=== PATIENT | female | born 1955 | race Caucasian/White ===

== ENCOUNTER 2020-12-13 16:36 | Emergency (ER) | payer MEDICARE, MEDICAID, SELFPAY ==
--- NOTE | ~2020-12-13 | CT_ITS ---
EXAMINATION: CT HEAD WITHOUT CONTRAST CT CERVICAL SPINE WITHOUT CONTRAST CLINICAL INFORMATION: Fall. Hit head. COMPARISON: 02/21/2020 CT head TECHNIQUE: A noncontrast CT of the head and a noncontrast CT of the cervical spine with sagittal and coronal reformats. This CT examination was performed using dose optimization techniques as appropriate, variously including the following: *Automated exposure control *Adjustment of mA and/or kV according to patient size (this includes techniques or standardized protocols for targeted exams where dose is matched to indication/reason for exam; i.e. extremities or head) *Use of iterative reconstruction technique DLP: 887 FINDINGS: No intra-axial or extra-axial hemorrhage. No acute territorial infarct. Chronic small vessel ischemic disease and generalized atrophy, similar to previous. Preservation of alvarez-white matter differentiation. No mass, mass effect, or midline shift. No fracture. The mastoid air cells and visualized paranasal sinuses are clear. Normal alignment of the cervical spine. No fracture. No prevertebral soft tissue swelling. C5-C6 and C6-C7 degenerative disc disease. Prominent degenerative changes at the anterior atlantoaxial junction. CT/CT head/brain wo con IMPRESSION: No acute intracranial abnormality. No cervical spine fracture or traumatic subluxation.
--- NOTE | ~2020-12-13 | CT_ITS ---
EXAMINATION: CT HEAD WITHOUT CONTRAST CT CERVICAL SPINE WITHOUT CONTRAST CLINICAL INFORMATION: Fall. Hit head. COMPARISON: 02/21/2020 CT head TECHNIQUE: A noncontrast CT of the head and a noncontrast CT of the cervical spine with sagittal and coronal reformats. This CT examination was performed using dose optimization techniques as appropriate, variously including the following: *Automated exposure control *Adjustment of mA and/or kV according to patient size (this includes techniques or standardized protocols for targeted exams where dose is matched to indication/reason for exam; i.e. extremities or head) *Use of iterative reconstruction technique DLP: 887 FINDINGS: No intra-axial or extra-axial hemorrhage. No acute territorial infarct. Chronic small vessel ischemic disease and generalized atrophy, similar to previous. Preservation of alvarez-white matter differentiation. No mass, mass effect, or midline shift. No fracture. The mastoid air cells and visualized paranasal sinuses are clear. Normal alignment of the cervical spine. No fracture. No prevertebral soft tissue swelling. C5-C6 and C6-C7 degenerative disc disease. Prominent degenerative changes at the anterior atlantoaxial junction. CT/CT cervical spine wo con IMPRESSION: No acute intracranial abnormality. No cervical spine fracture or traumatic subluxation.
[2020-12-13 16:40] VITALS: BP 156/81; PULSE 69; RESP 16; TEMP 35.9; O2SAT 100; BMI 22.3
[2020-12-13 17:41] VITALS: BP 136/89; PULSE 91; RESP 16; O2SAT 98
[2020-12-13 18:04] VITALS: BP 157/74; PULSE 66; RESP 18; TEMP 35.8; O2SAT 98
--- NOTE | 2020-12-13 18:16 | ED.FALL ---
HPI - Fall General Chief Complaint: Fall Stated Complaint: fall head inj Time Seen by Provider: 12/13/20 17:48 Source: patient and other ( jail staff) Mode of arrival: ambulatory Limitations: no limitations History of Present Illness HPI Narrative: 65-year-old female with a past medical history of bipolar, mood disorder, depression, anxiety, OCD, GERD, hypothyroidism, osteopenia, insomnia, breast cancer with left mastectomy, obesity here with complaints of fall. Per staff the patient was noted to have bleeding to the left side of her face with a laceration. The patient is nonverbal at baseline but does use some sign language. She was able to communicate to them that she fell. This was unwitnessed by staff. Staff does tell me that the sites of his bleeding had a previous laceration and they are unsure if she actually fell or if she reopened the laceration. She is at her mental status baseline. her tetanus is up-to-date. she is not on anticoagulation Related Data Allergies Allergy/AdvReac Type Severity Reaction Status Date / Time tamoxifen [TAMOXIFEN] Allergy Unknown OUT OF Unverified 02/29/20 16:45 SORTS Review of Systems Review of Systems: Yes Unobtainable due to mental status PMFSH Past Medical History Attestation statement: The following information was validated with the patient. Source: old records reviewed and nursing notes reviewed Medical History Anxiety Breast cancer Loose stools Mood disorder Social History Social History Advance Directives: Yes Advance Directives Information Provided: No Advance Directives on File: No Patient : No Physical Exam Vital Signs: Vital Signs: Last Vital Signs Temp 96.4 F L 12/13/20 18:04 Pulse 64 12/13/20 19:23 Resp 16 12/13/20 19:23 BP 150/63 H 12/13/20 19:23 Pulse Ox 98 12/13/20 19:23 Body Mass Index 22.3 Const: Other: nonverbal baseline General: no acute distress Nutritional Appearance: well nourished HENMT: Head: Yes normal to inspection Head images: 1. laceration Ears: hearing grossly normal bilaterally General nose exam: Normal external nose present Face and sinus: Yes normal facial exam Mouth: Normal oral and palatal mucosa present Throat: Yes posterior oropharynx normal Eyes: General: appearance normal, both eyes and all related structures Pupils: Equal, round and reactive pupils present Neck: Other: no midline tenderness, step-offs or deformities Neck: Yes normal visual inspection, Yes full ROM and Yes no lymphadenopathy Chest: Chest palpation & inspection: normal inspection of the chest Resp: Effort & Inspection: normal respiratory effort Auscultation: clear to auscultation bilaterally Cardio: Rate: regular rate Rhythm: regular rhythm Peripheral pulses: Peripheral pulses 2+ throughout GI: Inspection: Yes normal to inspection Palpation (GI): Soft to palpation and nontender Auscultation: normal bowel sounds Back/Spine/Pelvis: Thoracic/Lumbar Spine: thoracic and lumbar spine normal to inspection Skin: General skin exam: no rashes or lesions noted Neuro: Other: does not follow commands at baseline General: moves all extremities and normal sensation to monofilament Cranial nerves: Yes Equal, round and reactive pupils present Extrem: General: Yes normal to inspection Course Course Course Narrative: 65-year-old female here with complaints of fall with laceration to the left eyebrow. Staff is unsure if the patient actually fell as she had a previous wound at the same site and they believe she may have opened it herself. She is at her mental status baseline. No change per staff who is at the bedside. Hemodynamically stable. Will check CT head and neck as patient is unable to provide a history of present illness.. Will then need wound repair . 2015- CT negative. See wound repair note. Repeat neurological exam unchanged. At baseline. Discharge home with staff. Reviewed worrisome signs and symptoms with staff and when to return to the emergency department. Comfortable discharge home. Procedures Laceration Laceration 1: Site: other ( Eyebrow) Side (If applicable): left Size (cm): 2 Description: linear Depth: simple, single layer Local Anesthetic: lidocaine 2% Amount of anesthesia used (mL): 1 Pre-repair: wound explored Skin layer closed with: vicryl Size (cm): 6-0 Number of sutures: 3 Technique: simple, interrupted MDM - Fall Medical Records Attestation: I reviewed the patient's medical records. Lab Data Attestation: I reviewed the patient's lab results. Discharge Plan Discharge Clinical Impression: Laceration of face Patient Disposition: Home, Self-Care Instructions: Head Laceration (ED) Additional Instructions: sutures out in 5-7 days water may run over the sutures but no scrubbing at the site Tylenol for pain as needed Referrals: Gina Kumar MD [Primary Care Provider] - 2 days Interventions: ED Discharge Assessment Last Done: 12/13/20 20:06 Discharge Date/Time: 12/13/20 19:30
--- NOTE | 2020-12-13 18:38 | PC.NURSE ---
Pt is resting quietly in bed with brand representative from senior care at bedside.
--- NOTE | 2020-12-13 19:22 | PC.NURSE ---
Pt lidocaine pulled from pyxis by previous RN Vickie Bass, given to provider for bedside use. This RN unable to documented medication. Pt sutured without incidence by provider.
[2020-12-13 19:23] VITALS: BP 150/63; PULSE 64; RESP 16; O2SAT 98
== END 2020-12-13 19:30 | disposition home or self-care (01) ==
PROVIDERS: Emergency Provider Emergency Medicine Emergency Medical Services; PCP Family Medicine
DX: S01.112A Laceration without foreign body of left eyelid and periocular area, initial encounter (principal); W19.XXXA Unspecified fall, initial encounter; Y93.9 Activity, unspecified; Y92.9 Unspecified place or not applicable; Y99.9 Unspecified external cause status
CPT/HCPCS: 12011; 70450; 72125; 99284

== ENCOUNTER 2023-02-17 07:55 | Emergency (ER) | payer MEDICARE, MEDICAID, SELFPAY ==
--- NOTE | ~2023-02-17 | CT_ITS ---
EXAMINATION: CT HEAD WITHOUT CONTRAST CLINICAL INFORMATION: Weakness COMPARISON: 12/13/2020 TECHNIQUE: Contiguous axial imaging was performed from the skull base to vertex without intravenous administration of contrast. This CT examination was performed using dose optimization techniques as appropriate, variously including the following: *Automated exposure control *Adjustment of mA and/or kV according to patient size (this includes techniques or standardized protocols for targeted exams where dose is matched to indication/reason for exam; i.e. extremities or head) *Use of iterative reconstruction technique DLP: 644 mGy-cm FINDINGS: Unchanged volume loss. No evolving infarct, mass lesion, mass effect, midline shift, hemorrhage or extra-axial fluid collections. Lens extractions have been performed. Sinuses and mastoids are free of disease. Bony structures are intact. Unremarkable soft tissues. CT/CT head/brain wo IV con IMPRESSION: No acute intracranial pathology. Atrophy.
--- NOTE | ~2023-02-17 | XR_ITS ---
EXAMINATION: XR CHEST XR KUB CLINICAL INFORMATION: Cough. Constipation. COMPARISON: None TECHNIQUE: Chest, AP view. Abdomen, AP view, patient supine position. FINDINGS: CHEST: The patient is slightly rotated into a left anterior oblique position. Lungs are hypoinflated and clear. No pleural effusion. Cardiac silhouette is normal in size. Pulmonary vascular pattern is normal. 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 ABDOMEN: There is gaseous distention of bowel. Moderate to large amount fecal material is present within the colon. No fecal impaction within the rectum. Findings could be a manifestation of constipation. No pneumoperitoneum is seen on these radiographs obtained with the patient in supine position. No overt renal stones, although detection of small stones would be difficult due to overlying bowel gas and fecal material. The visualized bones are intact. Osteoarthritis of the hips appears to be mild on the right and moderate on the left. XR/XR KUB IMPRESSION: * No acute pulmonary abnormality. No evidence of pneumonia. * Moderate to large amount fecal material is present in the colon which is distended with gas. This could represent constipation. No evidence of bowel obstruction.
--- NOTE | ~2023-02-17 | XR_ITS ---
EXAMINATION: XR CHEST XR KUB CLINICAL INFORMATION: Cough. Constipation. COMPARISON: None TECHNIQUE: Chest, AP view. Abdomen, AP view, patient supine position. FINDINGS: CHEST: The patient is slightly rotated into a left anterior oblique position. Lungs are hypoinflated and clear. No pleural effusion. Cardiac silhouette is normal in size. Pulmonary vascular pattern is normal. 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 ABDOMEN: There is gaseous distention of bowel. Moderate to large amount fecal material is present within the colon. No fecal impaction within the rectum. Findings could be a manifestation of constipation. No pneumoperitoneum is seen on these radiographs obtained with the patient in supine position. No overt renal stones, although detection of small stones would be difficult due to overlying bowel gas and fecal material. The visualized bones are intact. Osteoarthritis of the hips appears to be mild on the right and moderate on the left. XR/XR chest 1V IMPRESSION: * No acute pulmonary abnormality. No evidence of pneumonia. * Moderate to large amount fecal material is present in the colon which is distended with gas. This could represent constipation. No evidence of bowel obstruction.
[2023-02-17 07:57] VITALS: BP 168/70; PULSE 72; RESP 18; O2SAT 97
[2023-02-17 08:01] VITALS: BP 155/73; BP 168/70; PULSE 68; PULSE 72; RESP 18; TEMP 36.6; O2SAT 97; BMI 23.3
--- NOTE | 2023-02-17 08:16 | ECG_ITS ---
Test Reason : WEAKNESS Blood Pressure : / mmHG Vent. Rate : 069 BPM Atrial Rate : 069 BPM P-R Int : 130 ms QRS Dur : 086 ms QT Int : 396 ms P-R-T Axes : 000 046 050 degrees QTc Int : 424 ms Normal sinus rhythm Normal ECG No previous ECGs available Referred By: Avani Lu Electronically Signed By:LEESA ABREU
--- OUTSIDE RECORDS SUMMARY | 2023-02-17 08:35 | XMS_ITS | Patient Health Record ---
Author Name Unknown Organization [facility] Address [address] [place] [address] Care Team Providers Care Hydrator Operator Name Role Phone Gina Kumar MD Primary Care Provider Unavailab Ajay Feliciano Jr Unavailable [phone] Pro Warren Unavailable [phone] ALLERGIES Allergen (clinical drug ingredient) Drug/Non Drug Allergy documented on EMR Reaction Allergy Type Onset Date Status tamoxifen Tamoxifen Unknown Drug Allergy Active REASON FOR REFERRAL No Information MEDICATIONS Medication SIG (Take, Route, Frequency, Duration) Notes Start Date End Date Status Thera - Oral for 30 Active Dulcolax (colon prep) 5 MG take at 3:00 p.m and 7:00p.m. Orally two tablets twice a day for one day for 1 day 01/26/2023 Active Loperamide HCl 2 MG Oral for 30 Active MiraLax (colon prep) 8.3 ounce ((238) grams mixed with Gatorade or Crystal Light orally begin at 5:00 p.m. the day before the procedure for 1 day 01/26/2023 Active Acetaminophen 325 MG Oral for 30 Active Omeprazole 20 MG Oral for 30 A ctive Sertraline HCl 100 MG Oral for 30 Active Loratadine 10 MG Oral for 30 A ctive Fluticasone Propionate 50 MCG/ACT Nasal for 30 Active Bacitracin 500 UNIT/GM External for 7 Active Nystatin 598542 UNIT/GM External for 14 Active clonazePAM 1 MG Oral for 30 Ac tive Preparation H Hydrocortisone Active GNP Milk of Magnesia 1200 MG/15ML Oral for 24 Active guaiFENesin 100 MG/5ML 10 mL as needed O rally every 4 hrs for cough Active Divalproex Sodium 125 MG Oral for 30 Active traZODone HCl 150 MG Oral for 30 Active SOCIAL HISTORY Tobacco Use: Social History Observation Description Date Details (start date - stop date) Never Smoker NA - NA Sex Assigned At : Social History Observation Description Sex Assigned At Unknown Tobacco Use/Smoking Question Answer Notes Patient is a nonsmoker Alcohol Screen Question Answer Notes Did you have a drink containing alcohol in the p ast year? No Points 0 Interpretation Negative PROBLEMS Problem Type ICD Code Onset Dates Problem Status W/U Status Risk SNOMED Code Notes Problem Lymphocytic colitis (K52.832) Active confirmed 9626269101 Problem Colon cancer screening (Z12.11) Active confirmed [id number] Encounters Encounter Location Date Provider Diagnosis [facility] [address] [place] [phone] 01/21/2023 Ajay Guaman Jr [facility] [address] [place] [phone] 01/28/2023 Pro Warren [facility] [address] [place] [phone] 01/26/2023 Ajay Guaman Jr Lymphocytic colitis K52.832 and Colon cancer screening Z12.11 ASSESSMENTS Encounter Date Diagnosis Assessment Notes Treatment Notes Treatment Clinical Notes 01/26/2023 Colon cancer screening (ICD-10 - Z12.11) Colonoscopy material was printed 01/26/2023 Lymphocytic colitis (ICD-10 - K52.832) PLAN OF TREATMENT Future Test Test Name Order Date COLONOSCOPY 01/26/2023 Next Appt Details Provider Name:Ajay munguia , 03/10/2023 10:10:00 AM, [address] [place] [address] , [place], [place], [id number], Insurance Providers Payer Name Payer Address Payer Phone Subscriber Number Group Number Insured Name Patient Relationship to Insured Coverage Start Date Coverage End Date [place] [address] [place] [phone] [id number] SIMONE ESTRELLITA Self - patient is the insured MEDICAID OF [facility] [address] [place] [phone] [id number] ESTRELLITA NICHOLS Self - patient is the insured MEDICAL (GENERAL) HISTORY Medical History History ICD Code Colonoscopy 02/25, sessile se rrated polyp, biopsies showing increased intraepithelial and lamina propria lymphocytes,? Lymphocytic colitis breast cancer arthritis gerd hemorrhoids hypothyroidism bipolar disorder Surgical History Surgery Date(Month/Year) cateract surgery left mastectomy partial hysterectomy
--- NOTE | 2023-02-17 08:45 | ED.GENADULT ---
HPI - General Adult General Chief complaint: Altered Mental Status Stated complaint: [facility] ST[facility] NOT ACTING @BASELINE,?'STROKE Time Seen by Provider: 02/17/23 07:59 Source: EMS and old records reviewed Mode of arrival: EMS Limitations: altered mental status History of Present Illness HPI narrative: 67 yo female with PMH of breast cancer, mood disorder, nonverbal from [facility] she reportedlly was less responsive this AM and staff thought possible facial droop though EMS notes no droop and no deficits on EMS arrival. No other hx reported. Patient now appears at baseline. Patient dx with COVID last Thursday did take paxlovid. Patient follows commands, tracks with eyes. complaint: decreased responsiveness Onset (ago): hour(s) (staff noted this AM) Severity: mild Relieving factors: rest Exacerbating factors: none Associated symptoms: denies other symptoms Treatments prior to arrival: other (has been on paxlovid) Related Data Previous Rx's Medication Instructions Recorded docusate sodium 100 mg capsule 100 mg PO BID #60 caps 02/17/23 (Colace) lactulose 20 gram/30 mL oral 20 g (30 mL) PO DAILY #1,200 mL 02/17/23 solution sennosides 8.6 mg tablet (senna) 8.6 mg PO BEDTIME #30 tabs 02/17/23 Allergies Allergy/AdvReac Type Severity Reaction Status Date / Time tamoxifen [TAMOXIFEN] Allergy Unknown OUT OF Unverified 02/29/20 16:45 SORTS Review of Systems Review of Systems: ROS unable to be obtained due to altered mental status PMFSH Past Medical History Attestation statement: The following information was validated with the patient. Medical History Loose stools Mood disorder Anxiety Breast cancer Social History Social History Alcohol intake: never Smoked in Last 30 Days: No Use of substances other than those prescribed or required for medical reasons: No Advance Directives: No Physical Exam ED Vital Signs: Vital Signs - 24 hr 02/17/23 07:57 02/17/23 08:01 Temperature 97.8 F Pulse Rate 72 68 Respiratory Rate 18 18 Blood Pressure 168/70 H 155/73 H Pulse Oximetry 97 97 Oxygen Delivery Method Room Air Room Air BMI result Body Mass Index 23.3 Appearance: Alert. follows commands, nonverbal No acute distress. Eyes: Pupils equal, round and reactive to light. ENT: Pharynx normal. Neck: Normal inspection. Neck supple. CVS: Normal heart rate and rhythm. Pulses normal. Respiratory: No respiratory distress. Breath sounds at bases diminished does have coarse cough Abdomen: Soft and nontender. Skin: Skin warm and dry. Normal skin color. Normal skin turgor. Extremities: No lower extremity edema. Neuro: tracks with eyes and follows commands, moving all extremities. No motor deficit. No sensory deficit. Course Course Course Narrative: patient at baseline per family Medical Decision Making Medical Decision Making [facility] Narrative: 67 yo female with mood disorder, nonverbal, dx with COVID 2 days ago here with c/o being less responsive upon waking she has no focal deficits does have a productive cough but not hypoxic. she is already on paxlovid. at this time will need basic labs, CXR, CT head for ICH. She appears at baseline. Possible COVID pneumonia, dehydration, encephalopathy Differential Diagnosis Differential Diagnoses: The differential diagnosis associated with the presentation includes COVID pneumonia, ICH, encephalopathy, dehydration, Admission/Observation Consideration of admission/observation: Escalation of care including admission/observation considered at baseline can be DC home with bowel regimen Lab Data [facility] Lab Attestation statement: I reviewed the patient's lab results. 02/17/23 08:56 02/17/23 08:55 Labs: Lab Results 02/17/23 02/17/23 02/17/23 Range/Units 08:55 08:56 10:19 WBC 5.2 (4.8-10.8) X10*3/uL RBC 4.07 L (4.20-5.50) X10*6/uL Hgb 12.8 (12.0-16.0) g/dl Hct 38.3 (37.0-47.0) % MCV 94.1 (80.0-98.0) fL MCH 31.4 (27.0-33.0) pg MCHC 33.4 (31.0-35.0) g/dl RDW 11.9 (11.0-16.0) % Plt Count 203 (160-400) X10*3/uL MPV 11.6 (9.4-12.3) fL Immature Gran % (Auto) 0.4 (0.0-0.4) % Neut % (Auto) 49.6 (45-73) % Lymph % (Auto) 38.8 (20-40) % [place] % (Auto) 8.3 (2-11) % Eos % (Auto) 2.3 (0-4) % Baso % (Auto) 0.6 (0-2) % Lymph # (Auto) 2.0 (1.2-4.9) X10*3/uL [place] # (Auto) 0.4 (0.1-1.2) X10*3/uL Eos # (Auto) 0.1 (0.0-0.4) X10*3/uL Baso # (Auto) 0.0 (0.0-0.2) X10*3/uL Abs Immat Gran (auto) 0.02 (0.00-0.03) X10*3/uL Absolute Neuts (auto) 2.6 (2.0-8.3) x10*3/uL Absolute Nucleated RBC 0.000 (0.0-0.012) X10*3/uL Nucleated RBC % (auto) 0.0 (0.0-0.2) /100WBC Sodium 140 (135-145) mmol/L Potassium 3.7 (3.3-5.1) mmol/L Chloride 101 (96-108) mmol/L Carbon Dioxide 31 H (22-29) mmol/L Anion Gap 12 (12-20) BUN 10 (9-16) mg/dL Creatinine 0.69 (0.5-1.4) mg/dL Estim Creat Clear Calc 72.2 Estimated GFR > 60 Random Glucose 99 (60-115) mg/dL Calcium 10.1 (8.4-10.2) mg/dL Magnesium 2.4 (1.6-2.6) mg/dL Total Bilirubin 0.4 (0.0-1.0) mg/dL Direct Bilirubin 0.2 (0.0-0.5) mg/dL AST 21 (5-31) U/L ALT 11 (0-31) U/L Alkaline Phosphatase 72 (39-117) U/L Troponin I High Sens < 2.7 (<3.5-17.0) ng/L Total Protein 8.5 H (6.5-8.0) g/dL Albumin 4.5 (3.5-5.0) g/dL Urine Color Yellow Urine Appearance Clear Urine pH 8.0 (5.0-9.0) Ur Specific [place] 1.010 (1.005-1.025) Urine Protein Negative (Neg-Trace) mg/dL Urine Glucose (UA) Negative (Negative) mg/dL Urine Ketones Negative (Negative) mg/dL Urine Blood Negative (Negative) Urine Nitrite Negative (Negative) Ur Leukocyte Esterase Negative (Negative) Valproic Acid (50.0-100.0) mcg/mL 02/17/23 Range/Units 10:45 WBC (4.8-10.8) X10*3/uL RBC (4.20-5.50) X10*6/uL Hgb (12.0-16.0) g/dl Hct (37.0-47.0) % MCV (80.0-98.0) fL MCH (27.0-33.0) pg MCHC (31.0-35.0) g/dl RDW (11.0-16.0) % Plt Count (160-400) X10*3/uL MPV (9.4-12.3) fL Immature Gran % (Auto) (0.0-0.4) % Neut % (Auto) (45-73) % Lymph % (Auto) (20-40) % [place] % (Auto) (2-11) % Eos % (Auto) (0-4) % Baso % (Auto) (0-2) % Lymph # (Auto) (1.2-4.9) X10*3/uL [place] # (Auto) (0.1-1.2) X10*3/uL Eos # (Auto) (0.0-0.4) X10*3/uL Baso # (Auto) (0.0-0.2) X10*3/uL Abs Immat Gran (auto) (0.00-0.03) X10*3/uL Absolute Neuts (auto) (2.0-8.3) x10*3/uL Absolute Nucleated RBC (0.0-0.012) X10*3/uL Nucleated RBC % (auto) (0.0-0.2) /100WBC Sodium (135-145) mmol/L Potassium (3.3-5.1) mmol/L Chloride (96-108) mmol/L Carbon Dioxide (22-29) mmol/L Anion Gap (12-20) BUN (9-16) mg/dL Creatinine (0.5-1.4) mg/dL Estim Creat Clear Calc Estimated GFR Random Glucose (60-115) mg/dL Calcium (8.4-10.2) mg/dL Magnesium (1.6-2.6) mg/dL Total Bilirubin (0.0-1.0) mg/dL Direct Bilirubin (0.0-0.5) mg/dL AST (5-31) U/L ALT (0-31) U/L Alkaline Phosphatase (39-117) U/L Troponin I High Sens (<3.5-17.0) ng/L Total Protein (6.5-8.0) g/dL Albumin (3.5-5.0) g/dL Urine Color Urine Appearance Urine pH (5.0-9.0) Ur Specific [place] (1.005-1.025) Urine Protein (Neg-Trace) mg/dL Urine Glucose (UA) (Negative) mg/dL Urine Ketones (Negative) mg/dL Urine Blood (Negative) Urine Nitrite (Negative) Ur Leukocyte Esterase (Negative) Valproic Acid 37.0 L (50.0-100.0) mcg/mL Independent Interpretation I performed an independent interpretation of an: EKG and Plain X-Ray Interpretation: Rate: 69 Rhythm: NSR [place]: normal , LVH Normal P waves. Normal GIO. Normal QRS complex. ST T wave : normal no VERNON qTC: normal prior studies: no acute ischemia The study has been interpreted contemporaneously by me. . Radiology Impression Discussion of test interpretation with radiology: I have reviewed the radiologist's reading. Independent Historian Clinical information obtained from an independent historian. History obtained from or confirmed by: Other (son) External Record Review External record reviewed: Outpatient record Discharge Plan Discharge Clinical Impression: Weakness Constipation Qualifiers: Constipation type: unspecified constipation type Qualified Code(s): K59.00 - Constipation, unspecified Patient Disposition: Home, Self-Care Instructions: Constipation (ED), Weakness (ED) Additional Instructions: return for worsening symptoms, fevers, lethargy, inability to eat or drink no covid pneumonia, no UTI, labs stable, CT head normal constipation noted on xray start on bowel regimen of docusate, senna and lactulose Prescriptions: New sennosides [senna] 8.6 mg tablet 8.6 mg PO BEDTIME Qty: 30 0RF docusate sodium [Colace] 100 mg capsule 100 mg PO BID Qty: 60 0RF lactulose 20 gram/30 mL solution 20 g PO DAILY Qty: 1200 0RF
[2023-02-17 09:00] LABS: MANUAL DIFF FLAG NO
[2023-02-17 09:02] LABS: Basophils Percent Auto 0.6 % (0-2); Eosinophils Absolute Auto 0.1 X10*3/uL (0.0-0.4); Eosinophils Percent Auto 2.3 % (0-4); Hematocrit 38.3 % (37.0-47.0); Hemoglobin 12.8 g/dl (12.0-16.0); Imm Gran Abs Auto 0.02 X10*3/uL (0.00-0.03); Imm Gran Pct Auto 0.4 % (0.0-0.4); Lymphocytes Percent Auto 38.8 % (20-40); Mean Corpuscular HGB Conc 33.4 g/dl (31.0-35.0); Mean Corpuscular Hemoglobin 31.4 pg (27.0-33.0); Mean Corpuscular Volume 94.1 fL (80.0-98.0); Mean Platelet Volume 11.6 fL (9.4-12.3); Monocytes Absolute Auto 0.4 X10*3/uL (0.1-1.2); Monocytes Percent Auto 8.3 % (2-11); Neutrophils Absolute Auto 2.6 x10*3/uL (2.0-8.3); Neutrophils Percent Auto 49.6 % (45-73); Platelet Count 203 X10*3/uL (160-400); Red Blood Count 4.07 X10*6/uL (4.20-5.50); Red Cell Distribution Width 11.9 % (11.0-16.0); White Blood Count 5.2 X10*3/uL (4.8-10.8)
[2023-02-17 09:15] LABS: Alanine Aminotransferase 11 U/L (0-31); Albumin Level 4.5 g/dL (3.5-5.0); Alkaline Phosphatase 72 U/L (39-117); Anion Gap 12 (12-20); Aspartate Amino Transferase 21 U/L (5-31); Bilirubin Direct 0.2 mg/dL (0.0-0.5); Bilirubin Total 0.4 mg/dL (0.0-1.0); Blood Urea Nitrogen 10 mg/dL (9-16); Calcium 10.1 mg/dL (8.4-10.2); Carbon Dioxide 31 mmol/L (22-29); Chloride 101 mmol/L (96-108); Creatinine Clr Calc Pharmacy 72.2; Estimated Glomerular Filt Rate > 60; Glucose Random 99 mg/dL (60-115); Magnesium 2.4 mg/dL (1.6-2.6); Potassium 3.7 mmol/L (3.3-5.1); Sodium 140 mmol/L (135-145); Total Protein 8.5 g/dL (6.5-8.0)
[2023-02-17 09:23] LABS: Troponin-I High Sensitivity < 2.7 ng/L (<3.5-17.0)
[2023-02-17 10:27] LABS: Appearance Urine Clear; Color Urine Yellow; Glucose Urine UA Negative (Negative); Leukocyte Esterase Urine Negative (Negative); Nitrite Urine Negative (Negative); Urine Blood Negative (Negative); Urine Ketones Negative (Negative); Urine Protein Negative (Neg-Trace)
[2023-02-17 11:16] VITALS: BP 163/58; PULSE 70; RESP 18; O2SAT 97
== END 2023-02-17 12:22 | disposition home or self-care (01) ==
PROVIDERS: Emergency Provider Emergency Medicine; PCP Family Medicine
DX: R53.1 Weakness (principal); K59.00 Constipation, unspecified; Z86.16 Personal history of COVID-19
CPT/HCPCS: 36415; 70450; 71045; 74018; 80048; 80076; 80164; 81003; 83735; 84484; 85025; 93005; 99284

== ENCOUNTER 2023-02-18 10:53 | Emergency (ER) | payer MEDICARE, MEDICAID, SELFPAY ==
--- NOTE | 2023-02-18 | ECG_ITS ---
Test Reason : NEURO SYMPTOMS Blood Pressure : / mmHG Vent. Rate : 081 BPM Atrial Rate : 086 BPM P-R Int : 000 ms QRS Dur : 082 ms QT Int : 370 ms P-R-T Axes : 000 049 042 degrees QTc Int : 429 ms Normal sinus rhythm with short MD Otherwise normal ECG When compared with ECG of 17-FEB-2023 08:38, No significant change was found Referred By: Generic ED Physician Electronically Signed By:LEESA ABREU
--- NOTE | ~2023-02-18 | CT_ITS ---
EXAMINATION: CT HEAD WITHOUT CONTRAST CLINICAL INFORMATION: Right facial droop. Rule out bleed or stroke. COMPARISON: Previous head CT scans, most recent from yesterday TECHNIQUE: Contiguous axial imaging was performed from the skull base to vertex without intravenous administration of contrast. This CT examination was performed using dose optimization techniques as appropriate, variously including the following: *Automated exposure control *Adjustment of mA and/or kV according to patient size (this includes techniques or standardized protocols for targeted exams where dose is matched to indication/reason for exam; i.e. extremities or head) *Use of iterative reconstruction technique DLP: 701 mGy-cm FINDINGS: There is no evidence of an extra-axial collection. There is no evidence of intra or extra-axial hemorrhage. The ventricles and extra-axial CSF spaces are prominent suggestive of generalized atrophy. Taylor-white matter differentiation is normal. No mass, mass effect or infarct is seen. No skull fracture. Visualized paranasal sinuses, mastoid air cells and middle ears are clear. CT/CT head/brain wo IV con IMPRESSION: No acute intracranial findings. No change from yesterday's exam.
[2023-02-18 11:02] VITALS: BP 162/63; BP 168/92; PULSE 83; PULSE 84; RESP 12; TEMP 36.4; O2SAT 97; BMI 22.2
--- OUTSIDE RECORDS SUMMARY | 2023-02-18 11:24 | XMS_ITS | Patient Health Record ---
Author Name Unknown Organization [facility] Address [address] [place] [address] Care Team Providers Care Manager Sharepoint Name Role Phone Gina Kumar MD Primary Care Provider Unavailab Ajay Feliciano Jr Unavailable Pro Warren Unavailable [phone] ALLERGIES Allergen (clinical drug ingredient) Drug/Non Drug [...] 500 UNIT/GM External for 7 Active Nystatin 437362 UNIT/GM External for 14 Active clonazePAM 1 [...] Notes Problem Lymphocytic colitis (K52.832) Active confirmed 6703844555 Problem Colon cancer screening (Z12.11) Active confirmed [id number] Encounters Encounter Location Date Provider Diagnosis [facility] [address] [place] [phone] 01/21/[address] [facility] [address] [place] [phone] 01/28/[address] [facility] [address] [place] [phone] 01/26/2023 Ajay Guaman Jr Lymphocytic colitis K52.832 and Colon cancer screening Z12.11 [facility] [address] [place] [phone] 02/17/2023 Ajay Guaman Jr ASSESSMENTS Encounter Date Diagnosis Assessment Notes Treatment Notes Treatment Clinical Notes 01/26/2023 Colon cancer screening (ICD-10 - Z12.11) Colonoscopy material was printed 01/26/2023 Lymphocytic colitis (ICD-10 - K52.832) PLAN OF TREATMENT Future Test Test Name Order Date COLONOSCOPY 01/26/2023 Next Appt Details Provider Name:Ajay munguia Jr, 03/10/2023 10:10:00 AM, [address] [place] [address] , [place], [place], [phone], Insurance Providers Payer Name Payer Address Payer Phone Subscriber Number Group Number Insured Name Patient Relationship to Insured Coverage Start Date Coverage End Date MEDICARE OF [place] [address] [place] [phone] [id number] ESTRELLITA NICHOLS Self - patient is the insured MEDICAID OF [facility] [address] [place] [phone] [id number] ESTRELLITA NICHOLS Self - patient is the insured MEDICAL (GENERAL) HISTORY Medical History History ICD Code Colonoscopy 02/25, sessile se rrated polyp, biopsies showing increased intraepithelial and lamina propria lymphocytes,? Lymphocytic colitis breast cancer arthritis gerd hemorrhoids hypothyroidism bipolar disorder Surgical History Surgery Date(Month/Year) cateract surgery left mastectomy partial hysterectomy
[2023-02-18 11:49] LABS: Prothrombin Time 11.6 SEC (11.1-13.3)
[2023-02-18 11:53] LABS: COVID-19 Test Positive (Negative); IDNOW Serial# 08D9AD1C
[2023-02-18 11:57] LABS: Alanine Aminotransferase 12 U/L (0-31); Albumin Level 3.7 g/dL (3.5-5.0); Alkaline Phosphatase 58 U/L (39-117); Anion Gap 12 (12-20); Aspartate Amino Transferase 25 U/L (5-31); Bilirubin Total 0.3 mg/dL (0.0-1.0); Blood Urea Nitrogen 9 mg/dL (9-16); Calcium 9.5 mg/dL (8.4-10.2); Carbon Dioxide 27 mmol/L (22-29); Chloride 102 mmol/L (96-108); Estimated Glomerular Filt Rate > 60; Glucose Random 105 mg/dL (60-115); Sodium 137 mmol/L (135-145)
[2023-02-18 12:00] VITALS: BP 148/63; PULSE 83; RESP 16; O2SAT 96
--- NOTE | 2023-02-18 12:04 | PC.NURSE ---
evaluated by provider upon arrival. pt resting in room now with staff at bedside. ekg and lab work obtained. call lynne within reach.
[2023-02-18 12:05] LABS: Troponin-I High Sensitivity < 2.7 ng/L (<3.5-17.0)
[2023-02-18 12:23] LABS: Basophils Percent Auto 0.8 % (0-2); Eosinophils Absolute Auto 0.1 X10*3/uL (0.0-0.4); Eosinophils Percent Auto 1.9 % (0-4); Hemoglobin 10.4 g/dl (12.0-16.0); Imm Gran Abs Auto 0.02 X10*3/uL (0.00-0.03); Imm Gran Pct Auto 0.4 % (0.0-0.4); Lymphocytes Absolute Auto 1.7 X10*3/uL (1.2-4.9); Lymphocytes Percent Auto 32.8 % (20-40); Mean Corpuscular HGB Conc 33.5 g/dl (31.0-35.0); Mean Corpuscular Hemoglobin 32.4 pg (27.0-33.0); Mean Corpuscular Volume 96.6 fL (80.0-98.0); Mean Platelet Volume 11.8 fL (9.4-12.3); Monocytes Absolute Auto 0.7 X10*3/uL (0.1-1.2); Monocytes Percent Auto 12.6 % (2-11); Neutrophils Absolute Auto 2.7 x10*3/uL (2.0-8.3); Neutrophils Percent Auto 51.5 % (45-73); Platelet Count 196 X10*3/uL (160-400); Red Blood Count 3.21 X10*6/uL (4.20-5.50); Red Cell Distribution Width 11.9 % (11.0-16.0); White Blood Count 5.3 X10*3/uL (4.8-10.8)
[2023-02-18 12:25] LABS: MANUAL DIFF FLAG NO
[2023-02-18 14:42] VITALS: BP 153/73; PULSE 92; RESP 14; TEMP 36.8; O2SAT 97
--- NOTE | 2023-02-18 14:44 | PC.NURSE ---
neuros intact, pt at baseline per staff. resting quietly in room, no sign/symptoms of distress. vss, call lynne within reach.
--- NOTE | 2023-02-18 14:58 | PC.NURSE ---
[facility] [phone]
--- NOTE | 2023-02-18 15:00 | PC.NURSE ---
[facility] staff left for day, [facility] director Gisselle requesting pt have patient observer as she is a flight risk. patient observer at bedside.
--- NOTE | 2023-02-18 15:26 | ED.NEUROSD ---
HPI - Neuro Symptoms/Deficit General Chief Complaint: Neuro Symptoms/Deficit Stated Complaint: ?stroke, right sided facial droop Time Seen by Provider: 02/18/23 11:36 Source: EMS Mode of arrival: EMS Limitations: other ( patient is nonverbal.) History of Present Illness HPI Narrative: 67-year-old female who was sent to emergency department from her care facility for evaluation of facial droop and possible stroke. The patient is nonverbal in the information came from EMS. According to EMS the patient was noted to have a right-sided facial droop at 06:30 hours. This did not improve by 10:30 hours therefore they called an ambulance and had the patient brought to emergency department for evaluation. The patient was seen in the emergency department yesterday 02/17/2023 for a similar complaint. In reviewing the note the patient was sent in from her care home for being less responsive and having a possible facial droop with no other deficits. Patient was also noted to be COVID positive at the care home and was started on Paxlovid. patient's laboratory evaluation, Urinalysis,chest x-ray, CT scan of the head. patient's evaluation was unremarkable with a negative CT scan Of the brain. Related Data Previous Rx's Medication Instructions Recorded docusate sodium 100 mg capsule 100 mg PO BID #60 caps 02/17/23 (Colace) lactulose 20 gram/30 mL oral 20 g (30 mL) PO DAILY #1,200 mL 02/17/23 solution sennosides 8.6 mg tablet (senna) 8.6 mg PO BEDTIME #30 tabs 02/17/23 Allergies Allergy/AdvReac Type Severity Reaction Status Date / Time tamoxifen [TAMOXIFEN] Allergy Unknown OUT OF Unverified 02/29/20 16:45 SORTS Review of Systems Review of Systems: Yes Other ( Unobtainable secondary to nonverbal status) [facility] Past Medical History Medical History Loose stools Mood disorder Anxiety Breast cancer Social History Social History Alcohol intake: never Smoked in Last 30 Days: No Use of substances other than those prescribed or required for medical reasons: No Advance Directives: No Advance Directives Information Provided: Yes Physical Exam Vital Signs: Vital Signs: Last Vital Signs Temp 98.3 F 02/18/23 14:42 Pulse 92 02/18/23 14:42 Resp 14 02/18/23 14:42 BP 153/73 H 02/18/23 14:42 Pulse Ox 97 02/18/23 14:42 O2 Del Method Room Air 02/18/23 14:42 BMI result Body Mass Index 22.2 vital signs did reveal an elevated blood pressure of 153/73. Exam: General: Awake, alert in no distress , patient is nonverbal but does follow simple commands Head: Normocephalic, atraumatic EENT: PERRL, Lids normal, sclera normal, conjunctiva normal, nose normal , ears normal, throat without erythema or exudates Neck: Supple, no adenopathy, trachea midline and nontender Lung: breath sounds symmetric, no wheezing, rales or rhonchi Chest: symmetric movement, nontender Heart: regular rate and rhythm, normal S1, S2 no murmurs or rubs Abdomen: soft, non-tender, nondistended, normal bowel sounds Back: no vertebral tenderness, no CVAT Extremities: no deformities, moves all extremities symmetrically Skin: no rashes, no lesion, normal color and warmth Neuro: Awake, alert, nonverbal, cranial nerves intact, I do not appreciate a facial droop, she is able to ever wrinkle both sides of her forehead symmetric, moves all extremities symmetrically Psych: Pleasant, cooperative NIH stroke scale is difficult to perform since the patient is nonverbal. Medical Decision Making Medical Decision Making MDM Narrative: 67-year-old female who presents emergency department for evaluation of right facial droop which was noted this morning at 06:30 hours when the patient woke up, was present at 10:30 hours therefore she was sent to the emergency department for evaluation. Patient had at similar presentation yesterday including altered mental status and had an unremarkable workup which included negative CT scan of the head and unremarkable laboratory evaluation. She also had a negative urinalysis. On my examination the patient follows commands I do not see a facial droop. She moves all extremities symmetrically. I ordered the following laboratory evaluation: CBC, CMP, PT/ INR, PTT, troponin, 12 EKG, COVID-19, CT scan of the head. 1609: Patient's laboratory evaluation was unremarkable. The patient is COVID-19 positive but this was alert and the patient is taking Paxlovid. Patient had a urinalysis yesterday which was negative. The patient's CT scan of the head without IV contrast has been taken but the radiology reading is pending. At the end of my shift, patient's care was turned over to my colleague, Dr. Darcy Hollis. If the patient CT scan is negative then I think the patient can be discharged back to her care home. Differential Diagnosis Differential Diagnoses: The differential diagnosis associated with the presentation includes differential diagnosis includes was not limited to TIA, stroke, intracranial bleed, Gordon palsy, electrolyte abnormality Admission/Observation Consideration of admission/observation: Escalation of care including admission/observation considered Lab Data MDM Lab Attestation statement: I reviewed the patient's lab results. my independent interpretation of patient's laboratory evaluation is as follows: Anemia with an H&H of 10 and 31. Normal CMP. High sensitive troponin I below detectable limits, COVID-19 was positive. 02/18/23 12:18 02/18/23 11:33 Labs: Lab Results 02/18/23 02/18/23 Range/Units 11:33 12:18 WBC 5.3 (4.8-10.8) X10*3/uL RBC 3.21 L D (4.20-5.50) X10*6/uL Hgb 10.4 L (12.0-16.0) g/dl Hct 31.0 L (37.0-47.0) % MCV 96.6 (80.0-98.0) fL MCH 32.4 (27.0-33.0) pg MCHC 33.5 (31.0-35.0) g/dl RDW 11.9 (11.0-16.0) % Plt Count 196 (160-400) X10*3/uL MPV 11.8 (9.4-12.3) fL Immature Gran % (Auto) 0.4 (0.0-0.4) % Neut % (Auto) 51.5 (45-73) % Lymph % (Auto) 32.8 (20-40) % [place] % (Auto) 12.6 H (2-11) % Eos % (Auto) 1.9 (0-4) % Baso % (Auto) 0.8 (0-2) % Lymph # (Auto) 1.7 (1.2-4.9) X10*3/uL [place] # (Auto) 0.7 (0.1-1.2) X10*3/uL Eos # (Auto) 0.1 (0.0-0.4) X10*3/uL Baso # (Auto) 0.0 (0.0-0.2) X10*3/uL Abs Immat Gran (auto) 0.02 (0.00-0.03) X10*3/uL Absolute Neuts (auto) 2.7 (2.0-8.3) x10*3/uL Absolute Nucleated RBC 0.000 (0.0-0.012) X10*3/uL Nucleated RBC % (auto) 0.0 (0.0-0.2) /100WBC PT 11.6 (11.1-13.3) SEC INR 1.0 (0.9-1.1) Sodium 137 (135-145) mmol/L Potassium 4.0 (3.3-5.1) mmol/L Chloride 102 (96-108) mmol/L Carbon Dioxide 27 (22-29) mmol/L Anion Gap 12 (12-20) BUN 9 (9-16) mg/dL Creatinine 0.68 (0.5-1.4) mg/dL Estim Creat Clear Calc 82.0 Estimated GFR > 60 Random Glucose 105 (60-115) mg/dL Calcium 9.5 (8.4-10.2) mg/dL Total Bilirubin 0.3 (0.0-1.0) mg/dL AST 25 (5-31) U/L ALT 12 (0-31) U/L Alkaline Phosphatase 58 (39-117) U/L Troponin I High Sens < 2.7 (<3.5-17.0) ng/L Total Protein 7.0 (6.5-8.0) g/dL Albumin 3.7 (3.5-5.0) g/dL COVID-19 (DENIS) Positive A (Negative) COVID-19 Clin Com See Note Independent Interpretation I performed an independent interpretation of an: EKG Interpretation: My independent interpretation the patient's 12 EKG done at 11:38 hours is as follows: Normal sinus rhythm with a rate of 81, normal MT, QRS and QTC duration, no ST segment elevation, no ST segment depression, no PACs, no PVCs Discharge Plan Discharge Clinical Impression: SARS-CoV-2 positive Patient Disposition: Still a Patient Additional Instructions: On my examination, I did not see a clear facial droop, your neurologic exam was otherwise unremarkable. Your laboratory evaluation was normal except for a positive COVID-19 test-this however was known and you should complete your course of Paxlovid as prescribed by your provider. Continue taking medications as prescribed by your providers. Follow-up with your doctor in 2 days. Please return to the emergency department if your symptoms get worse or if you develop any symptoms that are concerning to you. Prescriptions: No Action sennosides [senna] 8.6 mg tablet 8.6 mg PO BEDTIME Qty: 30 0RF docusate sodium [Colace] 100 mg capsule 100 mg PO BID Qty: 60 0RF lactulose 20 gram/30 mL solution 20 g PO DAILY Qty: 1200 0RF
--- NOTE | 2023-02-18 18:46 | PC.NURSE ---
awaiting EMS transport back to [facility], call placed to Gisselle regarding patient's discharge
== END 2023-02-18 19:16 ==
PROVIDERS: Emergency Medicine Emergency Medical Services; Emergency Provider Student in an Organized Health Care Education/Training Program
DX: U07.1 COVID-19 (principal); R29.810 Facial weakness; R51.9 Headache, unspecified; Z79.899 Other long term (current) drug therapy
CPT/HCPCS: 70450; 80053; 84484; 85025; 85610; 87635; 93005; 99283; 99284; 99285

== ENCOUNTER 2023-03-10 09:18 | Day surgery (SDC) | payer MEDICARE, MEDICAID, SELFPAY ==
--- NOTE | 2023-03-09 09:06 | HO.ANESPROP2 ---
Documented by User: Renetta Wilson NP 03/09/23 09:06 HPI - Anesthesia Eval Consult details Narrative: 67yo F for Colonoscopy PMFSH Past Medical History Medical History H/O hemorrhoids GERD (gastroesophageal reflux disease) Arthritis Lymphocytic colitis Loose stools Mood disorder Anxiety Breast cancer Surgical History Surgical History History of partial hysterectomy Hx of left mastectomy Hx of cataract extraction H/O colonoscopy Social History Social History Alcohol intake: never Advance Directives: No Advance Directives Information Provided: Yes Meds Allergies Allergy/AdvReac Type Severity Reaction Status Date / Time tamoxifen [TAMOXIFEN] Allergy Unknown OUT OF Unverified 02/29/20 16:45 SORTS Home Medications Medication Instructions Recorded Confirmed Last Taken Type acetaminophen 325 mg tablet mg PO 03/09/23 Unknown History bacitracin 500 unit/gram topical topical BID 03/09/23 Unknown History ointment clonazepam 1 mg tablet 1 mg PO BID PRN unknown 03/09/23 03/09/23 Unknown History divalproex 125 mg capsule,delayed 625 mg PO BID 03/09/23 03/09/23 Unknown History release sprinkle (Depakote Sprinkles) fluticasone propionate 50 spray intranasal 03/09/23 Unknown History mcg/actuation nasal spray,suspension loperamide 2 mg capsule mg PO 03/09/23 Unknown History loratadine 10 mg tablet 10 mg PO DAILY 03/09/23 03/09/23 Unknown History magnesium hydroxide 400 mg/5 mL ml PO 03/09/23 Unknown History oral suspension (Milk of Magnesia) multivitamin with folic acid 400 1 tab PO DAILY 03/09/23 03/09/23 Unknown History mcg tablet (Thera) nystatin 100,000 unit/gram topical topical 03/09/23 Unknown History cream omeprazole 20 mg capsule,delayed 20 mg PO DAILY 03/09/23 03/09/23 Unknown History release sertraline 100 mg tablet 100 mg PO BID 03/09/23 03/09/23 Unknown History trazodone 150 mg tablet 75 mg PO QPM 03/09/23 03/09/23 Unknown History Exam Exam Date and Time: March 09, [id number] Assessment and Plan Assessment Anesthesia Assessment: Chart Reviewed Documented by User: Darcy Claudio MD 03/10/23 11:39 PMFSH Past Medical History Medical History H/O hemorrhoids GERD (gastroesophageal reflux disease) Arthritis Lymphocytic colitis Loose stools Mood disorder Anxiety Breast cancer Surgical History Surgical History History of partial hysterectomy Hx of left mastectomy Hx of cataract extraction H/O colonoscopy History of Problems with Anesthesia: No Social History Social History Alcohol intake: never Advance Directives: No Advance Directives Information Provided: Yes Meds Allergies Allergy/AdvReac Type Severity Reaction Status Date / Time tamoxifen [TAMOXIFEN] Allergy Unknown OUT OF Unverified 02/29/20 16:45 SORTS Home Medications Medication Instructions Recorded Confirmed Last Taken Type acetaminophen 325 mg tablet mg PO 03/09/23 Unknown History bacitracin 500 unit/gram topical topical BID 03/09/23 Unknown History ointment clonazepam 1 mg tablet 1 mg PO BID PRN unknown 03/09/23 03/09/23 Unknown History divalproex 125 mg capsule,delayed 625 mg PO BID 03/09/23 03/09/23 Unknown History release sprinkle (Depakote Sprinkles) fluticasone propionate 50 spray intranasal 03/09/23 Unknown History mcg/actuation nasal spray,suspension loperamide 2 mg capsule mg PO 03/09/23 Unknown History loratadine 10 mg tablet 10 mg PO DAILY 03/09/23 03/09/23 Unknown History magnesium hydroxide 400 mg/5 mL ml PO 03/09/23 Unknown History oral suspension (Milk of Magnesia) multivitamin with folic acid 400 1 tab PO DAILY 03/09/23 03/09/23 Unknown History mcg tablet (Thera) nystatin 100,000 unit/gram topical topical 03/09/23 Unknown History cream omeprazole 20 mg capsule,delayed 20 mg PO DAILY 03/09/23 03/09/23 Unknown History release sertraline 100 mg tablet 100 mg PO BID 03/09/23 03/09/23 Unknown History trazodone 150 mg tablet 75 mg PO QPM 03/09/23 03/09/23 Unknown History Exam Airway Mallampati Class: II TM Dist: >3cm Neck ROM: Full Loose/Missing/Broken Teeth: No Heart: RRR Lungs: CTA Assessment and Plan Assessment Anesthesia Assessment: Anesthesia Plan Discussed Final Anesthetic Review History of Problems with Anesthesia: No NPO: Yes ASA Class: II Final Preanesthetic Review: Meds/Allgs Chart Reviewed, Consent Obtained/Reviewed and Anes Risks/Benef Reviewed Patient Risk: Low Procedure Risk: Low Anesthetic Plan Anesthetic Plan: MAC: Disposition: Standard PACU
--- OUTSIDE RECORDS SUMMARY | 2023-03-10 09:20 | XMS_ITS | Patient Health Record ---
Author Name Unknown Organization [facility] Address [address] [place] [address] Care Team Providers Care Marzipan Molder Name Role Phone Gina Kumar MD Primary Care Provider Unavailab Ajay Feliciano Jr Unavailable Pro Warren Unavailable [phone] ALLERGIES Allergen (clinical drug ingredient) Drug/Non Drug [...] 30 Active MiraLax (colon prep) 8.3 ounce (238) grams mixed with Gatorade or Crystal Light [...] 500 UNIT/GM External for 7 Active Nystatin 623355 UNIT/GM External for 14 Active clonazePAM 1 MG Oral for 30 Ac tive Preparation H Hydrocortisone Active GNP Milk of Magnesia 1200 MG/15ML Oral for 24 Active guaiFENesin 100 MG/5ML 10 mL as needed O rally every 4 hrs for cough Active Divalproex Sodium 125 MG Oral for 30 Active traZODone HCl 150 MG Oral for 30 Active MiraLax Mix-In [place] 17 GM 1 packet mixed with 8 ounces of fluid Orally Once a day as needed for constipation, hold for diarrhea for 30 day(s) 02/18/2023 Active SOCIAL HISTORY Tobacco Use: Social History [...] Notes Problem Lymphocytic colitis (K52.832) Active confirmed [id number] Problem Colon cancer screening (Z12.11) Active confirmed [id number] Encounters Encounter Location Date Provider Diagnosis [facility] Outpatient [address] [place] [phone] 03/10/2023 Ajay Guaman Jr [facility] [address] [place] [phone] 01/21/2023 Ajay Guaman Jr [facility] [address] [place] [phone] 01/28/2023 Pro Warren [facility] [address] [place] [phone] 01/26/2023 Ajay Guaman Jr Lymphocytic colitis K52.832 and Colon cancer screening Z12.11 [facility] [address] [place] [phone] 02/17/2023 Ajay Guaman Jr ASSESSMENTS Encounter Date Diagnosis Assessment Notes Treatment Notes Treatment Clinical Notes 01/26/2023 Colon cancer screening (ICD-10 - Z12.11) Colonoscopy material was printed 01/26/2023 Lymphocytic colitis (ICD-10 - K52.832) PLAN OF TREATMENT Future Test Test Name Order Date COLONOSCOPY 01/26/2023 Next Appt Details Provider Name:Ajay munguia Jr, 03/10/2023 10:10:00 AM, [address] [facility] , [place], [place], [phone], Insurance Providers Payer Name Payer Address Payer Phone Subscriber Number Group Number Insured Name Patient Relationship to Insured Coverage Start Date Coverage End Date MEDICARE OF [place] [address] [place] [address] [id number] ESTRELLITA NICHOLS Self - patient is the insured MEDICAID OF [facility] [address] [place] [phone] [id number] ESTRELLITA NICHOLS Self - patient is the insured MEDICAL (GENERAL) HISTORY Medical History History ICD Code Colonoscopy 02/25, sessile se rrated polyp, biopsies showing increased intraepithelial and lamina propria lymphocytes,? Lymphocytic colitis breast cancer arthritis gerd hemorrhoids hypothyroidism bipolar disorder Surgical History Surgery Date(Month/Year) cateract surgery left mastectomy partial hysterectomy
[2023-03-10] MEDS: Sodium Phosphate,Mono-Dibasic 133 ML ENEMA PR ×2 (10:44→11:02)
[2023-03-10 11:46] VITALS: BP 128/63; PULSE 68; RESP 18; TEMP 36.1; O2SAT 100; BMI 21.4
--- NOTE | 2023-03-10 11:47 | MHC.SHP ---
Pre-Procedural Eval Section A Date of Service: 03/10/23 Section B Chief Complaint: Encounter for screening for malignant neoplasm Details of Present Illness: see H&P no changes Relevant Social History: None Present Medications: see Short Stay Collaborative assessment Medical History: No relevant PMH History of Previous Operations: No relevant previous surgery Allergies: Allergies Allergy/AdvReac Type Severity Reaction Status Date / Time tamoxifen [TAMOXIFEN] Allergy Unknown OUT OF Unverified 02/29/20 16:45 SORTS Review of Systems Sugical H&P ROS: Negative: Constitution, Cardiovascular, Respiratory, Neurological, Psychiatric, Hem-Onc, Allergic/Immunologic, Gastrointestinal, Genitourinary, Musculoskeletal, Integumentary, Endocrine and Eyes/Ears/Nose/Throat Exam Surgical H&P Exam: Normal: HEENT, Normal: Heart, Normal: Lungs, Normal: Extremities, Normal: Abdomen, Normal: Skin and Normal: Neurological Plan Diagnosis/Plan: Unchanged I have reviewed the history and physical and performed a pertinent physical examination on my patient. No changes have occurred unless specified. Time Spent With Patient Time: Total time managing care of this patient today ____ minutes.
[2023-03-10 12:40] VITALS: BP 95/54; PULSE 62; RESP 18; TEMP 36.1; O2SAT 98
[2023-03-10 12:55] VITALS: BP 139/52; PULSE 60; RESP 18; O2SAT 99
--- NOTE | 2023-03-10 13:01 | OP_ITS ---
DATE OF SERVICE: 03/10/2023 SURGEON: Ajay Guaman MD INDICATIONS: Colon cancer screening and history of lymphocytic colitis. PREOPERATIVE DIAGNOSIS: POSTOPERATIVE DIAGNOSIS: PROCEDURE PERFORMED: Colonoscopy to the terminal ileum with snare polypectomy and biopsy. ESTIMATED BLOOD LOSS: COMPLICATIONS: ANESTHESIA: Monitored anesthesia care. ASSISTANTS: SPECIMENS: DESCRIPTION OF PROCEDURE: A history and physical was performed. The risks and benefits of the procedure were explained to the patient's brother, Benito Hudson, and informed consent was obtained. The patient was placed in the left lateral decubitus position. A digital rectal exam was performed and was found to be normal. The Olympus pediatric video colonoscope was introduced into the rectum and advanced to the cecum. The cecum was identified by transillumination, palpation, and identification of ileocecal valve examination was performed. The scope was removed. She tolerated the procedure well and was returned to the recovery area in stable condition. FINDINGS: The terminal ileum was examined and appeared normal. The visualized colonic mucosa was normal. The quality of the prep was fair with liquid stool in the right colon and transverse colon. It was washed and suctioned. This limited the sensitivity examination for detection of small polyps. There were multiple colonic polyps, which were removed using snare and biopsy forceps. All measured 10 mm or less. These were located in the cecum at 90 cm, 70 cm, and in the rectum. Random sigmoid biopsies were obtained to evaluate for microscopic colitis. Retroflexed examination showed some internal hemorrhoids. IMPRESSION: Colon polyps. RECOMMENDATION: Follow up the biopsy results. MD MAIKEL Camacho/MODL / [id number]
[2023-03-10 13:10] VITALS: BP 146/62; PULSE 61; RESP 16; TEMP 36.2; O2SAT 99
== END 2023-03-10 13:16 | disposition home or self-care (01) ==
PROVIDERS: Visit Provider Internal Medicine Gastroenterology
PROC: 0DJD8ZZ Inspection of Lower Intestinal Tract, Via Natural or Artificial Opening Endoscopic (ICD-10-PCS; CPT 45378; principal; 2023-03-10 10:10)
DX: Z12.11 Encounter for screening for malignant neoplasm of colon (principal); Z86.010 Personal history of colon polyps; D12.0 Benign neoplasm of cecum; D12.3 Benign neoplasm of transverse colon; D12.4 Benign neoplasm of descending colon; K62.1 Rectal polyp; K52.832 Lymphocytic colitis; K64.8 Other hemorrhoids; K21.9 Gastro-esophageal reflux disease without esophagitis; E03.9 Hypothyroidism, unspecified; F31.9 Bipolar disorder, unspecified; Z85.3 Personal history of malignant neoplasm of breast; Z79.899 Other long term (current) drug therapy
CPT/HCPCS: 45385; 45380; 88305

== ENCOUNTER 2023-06-21 19:58 | Emergency (ER) | payer MEDICARE, MEDICAID, SELFPAY ==
--- NOTE | ~2023-06-21 | CT_ITS ---
EXAMINATION: CT HEAD WITHOUT CONTRAST CLINICAL INFORMATION: Fall. COMPARISON: CT head from 02/18/2023. TECHNIQUE: Contiguous axial imaging was performed from the skull base to vertex without intravenous administration of contrast. This CT examination was performed using dose optimization techniques as appropriate, variously including the following: *Automated exposure control. *Adjustment of mA and/or kV according to patient size (this includes techniques or standardized protocols for targeted exams where dose is matched to indication/reason for exam; i.e. extremities or head). *Use of iterative reconstruction technique. DLP: 691 mGy-cm FINDINGS: There is no evidence of acute intracranial hemorrhage or edematous territorial infarction. Taylor-white matter differentiation is preserved. There is no abnormal attenuation within the brain parenchyma. Chronic mild asymmetry aspect of the left cerebral hemisphere relative to the right. Otherwise, proportional prominence of the ventricles and sulcal spaces without evidence of obstructive hydrocephalus. No abnormal mass effect or midline shift. No extra-axial fluid collections. Mild soft tissue edema along the right aspect of the frontal bone. No associated acute osseous abnormalities. Mild mucosal thickening of the paranasal sinuses. The mastoid air cells and middle ear cavities are clear. Periapical lucency associated with the mandibular left molar. CT/CT head/brain wo IV con IMPRESSION: 1. No evidence of acute intracranial hemorrhage or edematous territorial infarction. 2. Mild right frontal scalp edema/hematoma. No associated osseous abnormalities.
[2023-06-21 20:05] VITALS: BP 140/80; PULSE 68; O2SAT 98
[2023-06-21 20:08] VITALS: BMI 23.6
[2023-06-21 20:09] VITALS: BP 139/68; PULSE 61; RESP 16; TEMP 37; O2SAT 98
--- NOTE | 2023-06-21 20:50 | ED_ITS ---
HPI - Fall General Chief Complaint: Fall Stated Complaint: FALL,R CHECK BRUNO,-LOC,FROM [facility] PER EMS Time Seen by Provider: 06/21/23 20:50 Source: other (staff) Mode of arrival: EMS Limitations: other History of Present Illness HPI Narrative: Patient nonverbal with dementia came from custodial status post witnessed mechanical fall staff was in the bathroom with the patient when staff was throwing the wipes in the trash bin patient lost balance and fell hitting her right side of the face to the wall slight abrasion of the right elbow and right hip able to stand and ambulate no change in mental status patient is nonverbal at baseline Related Data Home Medications Medication Instructions Recorded Confirmed acetaminophen 325 mg tablet mg PO 03/09/23 bacitracin 500 unit/gram topical topical BID 03/09/23 ointment clonazepam 1 mg tablet 1 mg PO BID PRN unknown 03/09/23 03/09/23 divalproex 125 mg capsule,delayed 625 mg PO BID 03/09/23 03/09/23 release sprinkle (Depakote Sprinkles) fluticasone propionate 50 spray intranasal 03/09/23 mcg/actuation nasal spray,suspension loperamide 2 mg capsule mg PO 03/09/23 loratadine 10 mg tablet 10 mg PO DAILY 03/09/23 03/09/23 magnesium hydroxide 400 mg/5 mL ml PO 03/09/23 oral suspension (Milk of Magnesia) multivitamin with folic acid 400 1 tab PO DAILY 03/09/23 03/09/23 mcg tablet (Thera) nystatin 100,000 unit/gram topical topical 03/09/23 cream omeprazole 20 mg capsule,delayed 20 mg PO DAILY 03/09/23 03/09/23 release sertraline 100 mg tablet 100 mg PO BID 03/09/23 03/09/23 trazodone 150 mg tablet 75 mg PO QPM 03/09/23 03/09/23 Allergies Allergy/AdvReac Type Severity Reaction Status Date / Time tamoxifen [TAMOXIFEN] Allergy Unknown OUT OF Unverified 02/29/20 16:45 SORTS Review of Systems Review of Systems: Yes all other systems are reviewed and are negative PMFSH Past Medical History Onset Date is defined in the Problem List Problems that require an onset date and time if occurred within 24 hrs of arrival to the ED Aortic Dissection and Rupture; Neurologic impairment; Cardiopulmonary Arrest; Endotracheal Intubation; Insertion or Replacement of Mechanical Circulatory Assist Device Medical History H/O hemorrhoids GERD (gastroesophageal reflux disease) Arthritis Lymphocytic colitis Loose stools Mood disorder Anxiety Breast cancer Surgical History History of partial hysterectomy Hx of left mastectomy Hx of cataract extraction H/O colonoscopy Social History Social History Alcohol intake: never Patient Tobacco Use Status: Never used Tobacco Advance Directives: Yes Advance Directives Information Provided: No Advance Directives on File: No Physical Exam Vital Signs: Vital Signs: Last Vital Signs Temp 98.6 F 06/21/23 20:09 Pulse 61 06/21/23 20:09 Resp 16 06/21/23 20:09 BP 139/68 06/21/23 20:09 Pulse Ox 98 06/21/23 20:09 O2 Del Method Room Air 06/21/23 20:09 BMI result Body Mass Index 23.6 Appearance: Alert. And awake at baseline nonverbal. No acute distress. Eyes: PERRLA, No Nystagmus ENT: Pharynx normal. Oral Mucosa moist slight ecchymosis and soft tissue swelling right frontal area Neck: Normal inspection. Neck supple. No midline tenderness CVS: Normal heart rate and rhythm. Pulses normal. Respiratory: No respiratory distress. Equal air entry bilateral, Abdomen: Soft and nontender. Bowel sounds are present, Skin: Skin warm and dry. Normal skin color. Normal skin turgor. Extremities: No lower extremity edema. No calf tenderness Neuro: Alert and awake. No motor deficit. No sensory deficit.No cerebellar signs , cranial nerves II-XII intact Medical Decision Making Medical Decision Making MDM Narrative: Patient is status post minor fall CT scan of the head is negative no signs of significant injuries discharge patient back to group with the staff Differential Diagnosis Differential Diagnoses: The differential diagnosis associated with the presentation includes Intracranial injury Independent Interpretation I performed an independent interpretation of an: CT Scan Radiology Impression Discussion of test interpretation with radiology: I have reviewed the radiologist's reading. Discharge Plan Discharge Clinical Impression: Minor closed head injury Patient Disposition: Home, Self-Care Instructions: Fall Prevention for Older Adults (ED) Additional Instructions: Your CT scan of the head is negative for acute No acute significant injuries noticed from the fall Care and cautions as advised Prescriptions: No Action acetaminophen 325 mg tablet PO loperamide 2 mg capsule PO sertraline 100 mg tablet 100 mg PO BID clonazepam 1 mg tablet 1 mg PO BID PRN (Reason: unknown) bacitracin 500 unit/gram ointment topical BID magnesium hydroxide [Milk of Magnesia] 400 mg/5 mL suspension PO trazodone 150 mg tablet 75 mg PO QPM nystatin 100,000 unit/gram cream topical omeprazole 20 mg capsule,delayed release(DR/EC) 20 mg PO DAILY fluticasone propionate 50 mcg/actuation spray,suspension intranasal divalproex [Depakote Sprinkles] 125 mg capsule, delayed rel sprinkle 625 mg PO BID loratadine 10 mg tablet 10 mg PO DAILY multivitamin with folic acid [Thera] 400 mcg tablet 1 tab PO DAILY
--- OUTSIDE RECORDS SUMMARY | 2023-06-21 20:54 | XMS_ITS | Patient Health Record ---
Author Name Unknown Organization [facility] Address [address] [place] [address] Care Team Providers Care [employer] Operator Name Role Phone Gina Kumar MD Primary Care Provider Unavailab Ajay Feliciano Jr Unavailable Pro Warren Unavailable [phone] ALLERGIES Allergen (clinical drug ingredient) Drug/Non Drug Allergy documented on EMR Reaction Allergy Type Onset Date Status tamoxifen Tamoxifen Unknown Drug Allergy Active RESULTS Component Value Reference Range Notes Pathology Reviewed date:03/19/2023 09:12:25 AM Interpretation: Performing Lab:[facility], [address] [place] [id number] Notes/Report: REASON FOR REFERRAL No Information MEDICATIONS Medication SIG (Take, Route, Frequency, Duration) Notes Start Date End Date Status Loperamide HCl 2 MG 1 capsule as needed for diarrhea daily for 30 days 03/11/2023 Active Thera - Oral for 30 Active Dulcolax (colon prep) 5 MG take at 3:00 p.m and 7:00p.m. Orally two tablets twice a day for one day for 1 day 01/26/2023 Active MiraLax (colon prep) 8.3 ounce ((238) [...] 500 UNIT/GM External for 7 Active Nystatin 932415 UNIT/GM External for 14 Active clonazePAM 1 MG Oral for 30 Ac tive Preparation H Hydrocortisone Active GNP Milk of Magnesia 1200 MG/15ML Oral for 24 Active guaiFENesin 100 MG/5ML 10 mL as needed O rally every 4 hrs for cough Active Divalproex Sodium 125 MG Oral for 30 Active traZODone HCl 150 MG Oral for 30 Active MiraLax Mix-In [place] 17 GM 1 packet mixed with 8 [...] Notes Problem Lymphocytic colitis (K52.832) Active confirmed 5726935341 Problem Colon cancer screening (Z12.11) Active confirmed [id number] Encounters Encounter Location Date Provider Diagnosis [facility] Outpatient [address] [place] [phone] 03/10/2023 Ajay Guaman Jr Encounter for screening colonoscopy Z12.11 ; Colon polyps K63.5 and Lymphocytic colitis K52.832 [facility] [address] [place] [phone] 01/21/2023 Ajay Guaman Jr [facility] [address] [place] [phone] 01/28/2023 Pro Warren [facility] [address] [place] [phone] 01/26/2023 Ajay Guaman Jr Lymphocytic colitis K52.832 and Colon cancer screening Z12.11 [facility] [address] [place] [phone] 02/17/2023 Ajay Guaman Jr [facility] [address] [place] [phone] 03/11/2023 Ajay Guaman Jr [facility] [address] [place] [id number] 03/19/2023 Ajay Guaman Jr [facility] [address] [place] [address] 04/27/2023 Ajay Guaman Jr ASSESSMENTS Encounter Date Diagnosis Assessment Notes Treatment Notes Treatment Clinical Notes 03/10/2023 Encounter for screening colonoscopy (ICD-10 - Z12.11) 03/10/2023 Colon polyps (ICD-10 - K63.5) 01/26/2023 Colon cancer screening (ICD-10 - Z12.11) Colonoscopy material was printed 01/26/2023 Lymphocytic colitis (ICD-10 - K52.832) 03/10/2023 Lymphocytic colitis (ICD-10 - K52.832) PLAN OF TREATMENT Future Test Test Name Order Date COLONOSCOPY 01/26/2023 Next Appt Details Provider Name:Ajay munguia Jr, 03/16/2024 10:50:00 AM, [address] [facility], [address], [place], [address], Insurance Providers Payer Name Payer Address Payer Phone Subscriber Number Group Number Insured Name Patient Relationship to Insured Coverage Start Date Coverage End Date MEDICARE OF [place] [address] [place] [address] [id number] ESTRELLITA NICHOLS Self - patient is the insured MEDICAID OF [facility] [address] [place] [address] [id number] ESTRELLITA NICHOLS Self - patient is the insured MEDICAL (GENERAL) HISTORY Medical History History ICD Code Colonoscopy 02/25, sessile se rrated polyp, biopsies showing increased intraepithelial and lamina propria lymphocytes,? Lymphocytic colitis breast cancer arthritis gerd hemorrhoids hypothyroidism bipolar disorder Surgical History Surgery Date(Month/Year) cateract surgery left mastectomy partial hysterectomy
== END 2023-06-21 22:51 | disposition home or self-care (01) ==
PROVIDERS: Emergency Provider Internal Medicine; PCP Family Medicine
DX: S09.90XA Unspecified injury of head, initial encounter (principal); S50.311A Abrasion of right elbow, initial encounter; R51.9 Headache, unspecified; W01.10XA Fall on same level from slipping, tripping and stumbling with subsequent striking against unspecified object, initial encounter; Y93.9 Activity, unspecified; Y92.091 Bathroom in other non-institutional residence as the place of occurrence of the external cause; Y99.8 Other external cause status; Z79.899 Other long term (current) drug therapy
CPT/HCPCS: 70450; 99284

== ENCOUNTER 2023-09-06 21:34 | Emergency (ER) | payer MEDICARE, MEDICAID, SELFPAY ==
--- NOTE | ~2023-09-06 | CT_ITS ---
EXAMINATION: CT HEAD WITHOUT CONTRAST CLINICAL INFORMATION: Seizure. Head injury. COMPARISON: CT head from 06/21/2023. TECHNIQUE: Contiguous axial imaging was performed from the skull base to vertex without intravenous administration of contrast. This CT examination was performed using dose optimization techniques as appropriate, variously including the following: *Automated exposure control. *Adjustment of mA and/or kV according to patient size (this includes techniques or standardized protocols for targeted exams where dose is matched to indication/reason for exam; i.e. extremities or head). *Use of iterative reconstruction technique. DLP: 667 mGy-cm FINDINGS: There is no evidence of acute intracranial hemorrhage or edematous territorial infarction. Taylor-white matter differentiation is preserved. A few foci of hypoattenuation in the periventricular and deep white matter are consistent with mild microangiopathy. Chronic mild asymmetric prominence of the CSF spaces along the left greater than right cerebral hemispheres. Otherwise, proportional prominence of the ventricles and sulcal spaces without evidence of obstructive hydrocephalus. No abnormal mass effect or midline shift. No extra-axial fluid collections. Calcific atherosclerotic disease of the intracranial internal carotid arteries. No hyperdense vessel sign. No acute soft tissue or osseous abnormalities. Mild mucosal thickening of the paranasal sinuses. The mastoid air cells and middle ear cavities are clear. Bilateral lens extractions. CT/CT head/brain wo IV con IMPRESSION: 1. No evidence of acute intracranial hemorrhage or edematous territorial infarction. 2. Mild underlying microangiopathy and generalized cerebral volume loss.
[2023-09-06 21:37] VITALS: BP 158/69; BP 166/63; PULSE 74; RESP 15; TEMP 36.6; O2SAT 97; BMI 20.8
--- NOTE | 2023-09-06 21:45 | ECG_ITS ---
Test Reason : SEIZURE Blood Pressure : / mmHG Vent. Rate : 067 BPM Atrial Rate : 067 BPM P-R Int : 148 ms QRS Dur : 084 ms QT Int : 390 ms P-R-T Axes : 065 058 066 degrees QTc Int : 412 ms Normal sinus rhythm Normal ECG When compared with ECG of 18-FEB-2023 11:38, Nonspecific T wave abnormality no longer evident in Inferior leads Referred By: Generic ED Physician Electronically Signed By:ADRIÁN MARTIN MD
--- NOTE | 2023-09-06 21:53 | ED.SEIZURE ---
HPI - Seizure General Chief Complaint: Seizure Stated Complaint: WIT SEIZURE <1MIN, ONE PRIOR SEIZURE LAST YEAR Time Seen by Provider: 09/06/23 21:52 Source: patient Mode of arrival: EMS Limitations: no limitations History of Present Illness HPI Narrative: 68-year-old female with a history seizure disorder, GERD, lymphocytic colitis, mood disorder, anxiety, breast cancer, seizure who presents emergency department for evaluation of a witnessed seizure. The patient lives in a nursing home and there was a nursing home staff member in the emergency department with her. The staff member states that the patient started shaking uncontrollably for approximately 3-4 minutes and then had a period where she was unresponsive. The nursing home members states that the patient is currently at her baseline, the patient is nonverbal but does follow commands. Currently the patient is a seizure disorder last seizure was 3-4 years prior, she is on valproic acid. Related Data Home Medications Medication Instructions Recorded Confirmed acetaminophen 325 mg tablet mg PO 03/09/23 bacitracin 500 unit/gram topical topical BID 03/09/23 ointment clonazepam 1 mg tablet 1 mg PO BID PRN unknown 03/09/23 03/09/23 divalproex 125 mg capsule,delayed 625 mg PO BID 03/09/23 03/09/23 release sprinkle (Depakote Sprinkles) fluticasone propionate 50 spray intranasal 03/09/23 mcg/actuation nasal spray,suspension loperamide 2 mg capsule mg PO 03/09/23 loratadine 10 mg tablet 10 mg PO DAILY 03/09/23 03/09/23 magnesium hydroxide 400 mg/5 mL ml PO 03/09/23 oral suspension (Milk of Magnesia) multivitamin with folic acid 400 1 tab PO DAILY 03/09/23 03/09/23 mcg tablet (Thera) nystatin 100,000 unit/gram topical topical 03/09/23 cream omeprazole 20 mg capsule,delayed 20 mg PO DAILY 03/09/23 03/09/23 release sertraline 100 mg tablet 100 mg PO BID 03/09/23 03/09/23 trazodone 150 mg tablet 75 mg PO QPM 03/09/23 03/09/23 Allergies Allergy/AdvReac Type Severity Reaction Status Date / Time tamoxifen [TAMOXIFEN] Allergy Unknown OUT OF Verified 09/06/23 22:22 SORTS Review of Systems Review of Systems: Yes Other (Patient was nonverbal) [facility] Past Medical History [facility] Narrative: Social history: The patient is a member of a nursing home and there is a staff member from the nursing home here in the emergency department with her. Medical History H/O hemorrhoids GERD (gastroesophageal reflux disease) Arthritis Lymphocytic colitis Loose stools Mood disorder Anxiety Breast cancer Surgical History History of partial hysterectomy Hx of left mastectomy Hx of cataract extraction H/O colonoscopy Social History Social History Alcohol intake: never Patient Tobacco Use Status: Never used Tobacco Advance Directives: Yes Advance Directives on File: Yes Advance Directives Date on File: 03/10/23 Physical Exam Vital Signs: Vital Signs: Last Vital Signs Temp 97.9 F 09/06/23 21:37 Pulse 74 09/06/23 21:37 Resp 15 09/06/23 21:37 BP 166/63 H 09/06/23 21:37 O2 Del Method Room Air 09/06/23 21:37 BMI result Body Mass Index 20.8 Vital signs revealed elevated blood pressure of 166/63 Exam: General: Awake, nonverbal, does not appear to be in distress, follows simple commands Head: Normocephalic, atraumatic EENT: PERRL, Lids normal, sclera normal, conjunctiva normal, nose normal , ears normal, throat without erythema or exudates Neck: Supple, no adenopathy Lung: breath sounds symmetric, no wheezing, rales or rhonchi Chest: symmetric movement, nontender Heart: regular rate and rhythm, normal S1, S2 no murmurs or rubs Abdomen: soft, non-tender, nondistended, normal bowel sounds Back: no vertebral tenderness, no CVAT Extremities: no deformities, moves all extremities symmetrically Neuro: Awake, alert, cranial nerves intact, moves all extremities symmetrically Psych: Pleasant, cooperative Medications Administered Discontinued Medications Generic Name Dose Route Start Last Admin Trade Name Freq PRN Reason Stop Dose Admin Lorazepam 1 mg 09/06/23 22:04 09/06/23 22:25 Lorazepam 2 Mg/Ml Vial IVPUSH 09/06/23 22:05 1 mg STAT STA Administration Medical Decision Making Medical Decision Making [facility] Narrative: 68-year-old female nursing home resident with a history GERD, lymphocytic colitis, mood disorder, anxiety, breast cancer, seizure who presents emergency department for evaluation of a witnessed tonic clonic seizure lasting approximately 3-4 minutes with a postictal. Apparently the patient does have a seizure disorder last seizure was 3-4 years prior. Vital signs did reveal an elevated blood pressure otherwise unremarkable. Physical examination was nonfocal in his consistent with her baseline-she is nonverbal but does follow commands. Differential diagnosis: ?Includes but is not limited to tonic-clonic seizure, skull fracture, bleed, electrolyte abnormalities, anemia Following evaluation was ordered: CBC, CMP, magnesium, troponin, urinalysis, valproic acid level, EKG, CT scan of the brain Patient was initially treated with the following: Ativan 1 mg IV Course: 00:26 Patient was given Ativan 1 mg IV to raise her seizure threshold My independent interpretation patient's laboratory evaluation is as follows: normocytic anemia with an H&H of 11 and 31 point 7-chronic. Sodium low 132 otherwise CMP was normal. Troponin was below detectable limits. Valproic acid was therapeutic at 55.4. CT scan of the brain revealed no acute findings Patient has a known seizure disorder and is on valproic acid, at this time I do not think that she needs be hospitalized and she can be discharged home with follow-up with her neurologist. Admission/Observation Consideration of admission/observation: Escalation of care including admission/observation considered Lab Data MDM Lab Attestation statement: I reviewed the patient's lab results. 09/06/23 Unknown 09/06/23 Unknown Labs: Lab Results 09/06/23 09/06/23 Range/Units 21:38 Unknown WBC 5.8 (4.8-10.8) X10*3/uL RBC 3.40 L (4.20-5.50) X10*6/uL Hgb 11.1 L (12.0-16.0) g/dl Hct 31.7 L (37.0-47.0) % MCV 93.2 (80.0-98.0) fL MCH 32.6 (27.0-33.0) pg MCHC 35.0 (31.0-35.0) g/dl RDW 12.1 (11.0-16.0) % Plt Count 153 L (160-400) X10*3/uL MPV 12.0 (9.4-12.3) fL Immature Gran % (Auto) 0.2 (0.0-0.4) % Neut % (Auto) 49.6 (45-73) % Lymph % (Auto) 36.4 (20-40) % [place] % (Auto) 10.3 (2-11) % Eos % (Auto) 2.6 (0-4) % Baso % (Auto) 0.9 (0-2) % Lymph # (Auto) 2.1 (1.2-4.9) X10*3/uL Winston # (Auto) 0.6 (0.1-1.2) X10*3/uL Eos # (Auto) 0.2 (0.0-0.4) X10*3/uL Baso # (Auto) 0.1 (0.0-0.2) X10*3/uL Abs Immat Gran (auto) 0.01 (0.00-0.03) X10*3/uL Absolute Neuts (auto) 2.9 (2.0-8.3) x10*3/uL Absolute Nucleated RBC 0.000 (0.0-0.012) X10*3/uL Nucleated RBC % (auto) 0.0 (0.0-0.2) /100WBC Sodium 132 L (135-145) mmol/L Potassium 3.7 (3.3-5.1) mmol/L Chloride 99 (96-108) mmol/L Carbon Dioxide 25 (22-29) mmol/L Anion Gap 12 (12-20) BUN 12 (9-16) mg/dL Creatinine 0.66 (0.5-1.4) mg/dL Estim Creat Clear Calc 81.0 Estimated GFR > 60 POC Glucose 100 (60-115) mg/dL Random Glucose 88 (60-115) mg/dL Calcium 8.7 D (8.4-10.2) mg/dL Magnesium 2.2 (1.6-2.6) mg/dL Total Bilirubin 0.2 (0.0-1.0) mg/dL AST 15 (5-31) U/L ALT 7 (0-31) U/L Alkaline Phosphatase 51 (39-117) U/L Troponin I High Sens < 2.7 (<3.5-17.0) ng/L Total Protein 6.4 L (6.5-8.0) g/dL Albumin 3.6 (3.5-5.0) g/dL Valproic Acid 55.4 (50.0-100.0) mcg/mL Independent Interpretation I performed an independent interpretation of an: EKG Interpretation: My interpretation patient's 12 EKG done at 21:48 hours is as follows: Normal sinus rhythm rate of 67, normal MD interval, QRS duration QTC interval, peaked T-wave in lead V3 and V 4, no PACs, no PVCs Radiology Impression Discussion of test interpretation with radiology: I have reviewed the radiologist's reading. Radiologist Impression: CT head/brain wo IV con IMPRESSION: 1. No evidence of acute intracranial hemorrhage or edematous territorial infarction. 2. Mild underlying microangiopathy and generalized cerebral volume loss. Dictated By: Babar Mendosa DO Discharge Plan Discharge Clinical Impression: Epileptic seizure Patient Disposition: Home, Self-Care Additional Instructions: The CT scan of your brain did not reveal any bleeding or skull fracture. Your blood work was unremarkable pain Your seizure medication, Depakote/valproic acid level was therapeutic You received Ativan 1 mg IV to help prevent a seizure in the next 24 hours You will need to follow-up with your neurologist for re-evaluation and to discuss whether you need to increase your seizure medication or start a new seizure medication Follow-up with your doctor in 2 days. Please return to the emergency department if your symptoms get worse or if you develop any symptoms that are concerning to you. Prescriptions: No Action acetaminophen 325 mg tablet PO loperamide 2 mg capsule PO sertraline 100 mg tablet 100 mg PO BID clonazepam 1 mg tablet 1 mg PO BID PRN (Reason: unknown) bacitracin 500 unit/gram ointment topical BID magnesium hydroxide [Milk of Magnesia] 400 mg/5 mL suspension PO trazodone 150 mg tablet 75 mg PO QPM nystatin 100,000 unit/gram cream topical omeprazole 20 mg capsule,delayed release(DR/EC) 20 mg PO DAILY fluticasone propionate 50 mcg/actuation spray,suspension intranasal divalproex [Depakote Sprinkles] 125 mg capsule, delayed rel sprinkle 625 mg PO BID loratadine 10 mg tablet 10 mg PO DAILY multivitamin with folic acid [Thera] 400 mcg tablet 1 tab PO DAILY
[2023-09-06] MEDS: LORazepam 2 MG/ML VIAL 1 MG IVPUSH (22:25)
[2023-09-06 22:31] LABS: Glucose, Whole Blood 100 mg/dL (60-115)
[2023-09-06 22:31] LABS: MANUAL DIFF FLAG NO
[2023-09-06 22:33] LABS: Basophils Absolute Auto 0.1 X10*3/uL (0.0-0.2); Basophils Percent Auto 0.9 % (0-2); Eosinophils Absolute Auto 0.2 X10*3/uL (0.0-0.4); Eosinophils Percent Auto 2.6 % (0-4); Hematocrit 31.7 % (37.0-47.0); Hemoglobin 11.1 g/dl (12.0-16.0); Imm Gran Abs Auto 0.01 X10*3/uL (0.00-0.03); Imm Gran Pct Auto 0.2 % (0.0-0.4); Lymphocytes Absolute Auto 2.1 X10*3/uL (1.2-4.9); Lymphocytes Percent Auto 36.4 % (20-40); Mean Corpuscular Hemoglobin 32.6 pg (27.0-33.0); Mean Corpuscular Volume 93.2 fL (80.0-98.0); Monocytes Absolute Auto 0.6 X10*3/uL (0.1-1.2); Monocytes Percent Auto 10.3 % (2-11); Neutrophils Absolute Auto 2.9 x10*3/uL (2.0-8.3); Neutrophils Percent Auto 49.6 % (45-73); Platelet Count 153 X10*3/uL (160-400); Red Cell Distribution Width 12.1 % (11.0-16.0); White Blood Count 5.8 X10*3/uL (4.8-10.8)
[2023-09-06 22:45] LABS: Valproate 55.4 mcg/mL (50.0-100.0)
[2023-09-06 22:48] LABS: Alanine Aminotransferase 7 U/L (0-31); Albumin Level 3.6 g/dL (3.5-5.0); Alkaline Phosphatase 51 U/L (39-117); Anion Gap 12 (12-20); Aspartate Amino Transferase 15 U/L (5-31); Bilirubin Total 0.2 mg/dL (0.0-1.0); Blood Urea Nitrogen 12 mg/dL (9-16); Calcium 8.7 mg/dL (8.4-10.2); Carbon Dioxide 25 mmol/L (22-29); Chloride 99 mmol/L (96-108); Estimated Glomerular Filt Rate > 60; Glucose Random 88 mg/dL (60-115); Potassium 3.7 mmol/L (3.3-5.1); Sodium 132 mmol/L (135-145); Total Protein 6.4 g/dL (6.5-8.0)
[2023-09-06 22:58] LABS: Troponin-I High Sensitivity < 2.7 ng/L (<3.5-17.0)
[2023-09-06 23:59] LABS: Magnesium 2.2 mg/dL (1.6-2.6)
[2023-09-07 02:39] VITALS: BP 145/66; PULSE 63; RESP 16; TEMP 36.6; O2SAT 98
[2023-09-07 03:06] VITALS: BP 145/66; PULSE 63; RESP 16; TEMP 36.6; O2SAT 98
== END 2023-09-07 03:09 | disposition home or self-care (01) ==
PROVIDERS: Emergency Provider Emergency Medicine Emergency Medical Services; PCP Family Medicine
DX: G40.909 Epilepsy, unspecified, not intractable, without status epilepticus (principal); Z79.899 Other long term (current) drug therapy
CPT/HCPCS: 36415; 70450; 80053; 80164; 82947; 83735; 84484; 85025; 93005; 96374; 99284; J2060

== ENCOUNTER → 2023-09-06 21:45 | Outpatient (BNV) | payer MEDICARE, MEDICAID, SELFPAY | PROVIDERS: Emergency Provider Emergency Medicine Emergency Medical Services; PCP Family Medicine; Visit Provider Internal Medicine Cardiovascular Disease | DX: G40.909 Epilepsy, unspecified, not intractable, without status epilepticus (principal) | CPT/HCPCS: 93010 ==

== ENCOUNTER 2023-09-13 07:42 | Emergency (ER) | payer MEDICARE, MEDICAID, SELFPAY ==
--- NOTE | ~2023-09-13 | CT_ITS ---
EXAMINATION: CT HEAD WITHOUT CONTRAST CT CERVICAL SPINE WITHOUT CONTRAST CLINICAL INFORMATION: Fall. COMPARISON: CT head 09/06/2023. TECHNIQUE: Contiguous axial imaging was performed from the skull base to vertex without intravenous administration of contrast. Contiguous axial imaging was performed from the upper chest through the skull base without intravenous administration of contrast. Coronal and sagittal reformats were obtained at the acquisition workstation. This CT examination was performed using dose optimization techniques as appropriate, variously including the following: *Automated exposure control *Adjustment of mA and/or kV according to patient size (this includes techniques or standardized protocols for targeted exams where dose is matched to indication/reason for exam; i.e. extremities or head) *Use of iterative reconstruction technique DLP: 640 and 192 mGy-cm FINDINGS: Head: There is no evidence of acute intracranial hemorrhage or edematous territorial infarction. A few foci of hypoattenuation in the periventricular and deep white matter are consistent with mild microangiopathy. Taylor-white matter differentiation is preserved. Proportional prominence of the ventricles and sulcal spaces. No evidence for obstructive hydrocephalus. No abnormal mass effect or midline shift. No extra-axial fluid collections. No acute soft tissue or osseous abnormalities. The mastoid air cells and paranasal sinuses are clear. Bilateral lens extraction. Cervical Spine: The atlantooccipital and atlantoaxial articulations remain well aligned. Trace most likely degenerative retrolisthesis of C3 on C4. No evidence of acute fracture or subluxation. Mild to moderate multilevel intervertebral disc height loss and facet arthropathy/uncovertebral hypertrophy. There is no prevertebral soft tissue swelling. The thyroid gland and remaining cervical soft tissues are normal in appearance. The lung apices demonstrate no abnormalities. CT/CT cervical spine wo IV con IMPRESSION: 1. No acute intracranial pathology. 2. No acute cervical spinal fractures or malalignment.
--- NOTE | 2023-09-13 07:53 | ED_ITS ---
HPI - Head Injury General Chief complaint: Fall Stated complaint: FALL W/SZ ACTIVITY FROM [facility] PER EMS Time Seen by Provider: 09/13/23 07:52 Source: EMS Mode of arrival: EMS Limitations: physical limitation History of Present Illness HPI Narrative: 68-year-old female past history significant for seizure disorder GERD lymphocytic colitis mood disorder anxiety breast cancer who presents emergency department after a seizure. Per the correction the patient was falling he had and started shaking. This lasted a few seconds and brought in by EMS. Patient is been at her baseline but has been staying more than usual. She was seen here just a few days ago for the same patient is on valproic acid for her seizures. She did have a normal valproic acid level 8 days ago when she was here she had a CT of her head which was normal and labs were otherwise unremarkable and was sent back home MD Complaint: head injury Related Data Home Medications ?Medication ?Instructions ?Recorded ?Confirmed acetaminophen 325 mg tablet mg PO 03/09/23 bacitracin 500 unit/gram topical topical BID 03/09/23 ointment clonazepam 1 mg tablet 1 mg PO BID PRN unknown 03/09/23 03/09/23 divalproex 125 mg capsule,delayed 625 mg PO BID 03/09/23 03/09/23 release sprinkle (Depakote Sprinkles) fluticasone propionate 50 spray intranasal 03/09/23 mcg/actuation nasal spray,suspension loperamide 2 mg capsule mg PO 03/09/23 loratadine 10 mg tablet 10 mg PO DAILY 03/09/23 03/09/23 magnesium hydroxide 400 mg/5 mL ml PO 03/09/23 oral suspension (Milk of Magnesia) multivitamin with folic acid 400 1 tab PO DAILY 03/09/23 03/09/23 mcg tablet (Thera) nystatin 100,000 unit/gram topical topical 03/09/23 cream omeprazole 20 mg capsule,delayed 20 mg PO DAILY 03/09/23 03/09/23 release sertraline 100 mg tablet 100 mg PO BID 03/09/23 03/09/23 trazodone 150 mg tablet 75 mg PO QPM 03/09/23 03/09/23 Allergies Allergy/AdvReac Type Severity Reaction Status Date / Time tamoxifen [TAMOXIFEN] Allergy Unknown OUT OF Verified 09/13/23 08:26 SORTS Review of Systems 2 Review of Systems: Patient is non verbal at baseline [facility] Past Medical History Medical History H/O hemorrhoids GERD (gastroesophageal reflux disease) Arthritis Lymphocytic colitis Loose stools Mood disorder Anxiety Breast cancer Surgical History History of partial hysterectomy Hx of left mastectomy Hx of cataract extraction H/O colonoscopy Social History Social History Alcohol intake: never Patient Tobacco Use Status: Never used Tobacco Advance Directives: Yes Advance Directives on File: Yes Advance Directives Date on File: 03/10/23 Physical Exam 2 Vital Signs: Vital Signs: Last Vital Signs Temp 98.3 F 09/13/23 08:33 Pulse 73 09/13/23 08:33 Resp 16 09/13/23 08:33 BP 182/80 H 09/13/23 08:33 Pulse Ox 97 09/13/23 08:00 O2 Del Method Room Air 09/13/23 08:33 BMI result Body Mass Index 21.6 General: Well-appearing well-nourished in no signs of distress HEENT: Normocephalic atraumatic Neck: No signs of JVD, no masses no tenderness or lymphadenopathy Cardiovascular: Regular rate and rhythm Respiratory: Clear to auscultation bilaterally Abdomen: Soft nontender no masses rectal exam performed guiac negative fiberglass quality technician confirmed. Extremities: Normal pedal pulses no signs of edema Skin: Dry warm no rashes Back: No tenderness full ROM Course Course Course Narrative: CT and labs are all normal I will discharge the patient home. Medications Administered Discontinued Medications Generic Name Dose Route Start Last Admin Trade Name Freq PRN Reason Stop Dose Admin Sodium Chloride 1,000 mls @ 999 mls/hr 09/13/23 08:00 09/13/23 10:11 Ns IV 09/13/23 09:00 Infused .Q1H1M NETTIE Infusion Medical Decision Making Medical Decision Making [facility] Narrative: I will send off labs including ammonia level CT head and neck and reassess. Differential Diagnosis Differential Diagnoses: The differential diagnosis associated with the presentation includes Fall acute intracranial injury cervical spine injury abnormal labs hyperammonemia not therapeutic on valproic acid level Admission/Observation Consideration of admission/observation: Escalation of care including admission/observation considered Lab Data MDM Lab Attestation statement: I reviewed the patient's lab results. 09/13/23 09:15 09/13/23 09:44 Labs: Lab Results 09/13/23 09/13/23 Range/Units 09:15 09:44 WBC 4.8 (4.8-10.8) X10*3/uL RBC 3.82 L (4.20-5.50) X10*6/uL Hgb 12.4 (12.0-16.0) g/dl Hct 36.2 L (37.0-47.0) % MCV 94.8 (80.0-98.0) fL MCH 32.5 (27.0-33.0) pg MCHC 34.3 (31.0-35.0) g/dl RDW 12.2 (11.0-16.0) % Plt Count 179 (160-400) X10*3/uL MPV 12.0 (9.4-12.3) fL Immature Gran % (Auto) 0.4 (0.0-0.4) % Neut % (Auto) 51.8 (45-73) % Lymph % (Auto) 29.7 (20-40) % Darke % (Auto) 8.5 (2-11) % Eos % (Auto) 8.1 H (0-4) % Baso % (Auto) 1.5 (0-2) % Lymph # (Auto) 1.4 (1.2-4.9) X10*3/uL Darke # (Auto) 0.4 (0.1-1.2) X10*3/uL Eos # (Auto) 0.4 (0.0-0.4) X10*3/uL Baso # (Auto) 0.1 (0.0-0.2) X10*3/uL Abs Immat Gran (auto) 0.02 (0.00-0.03) X10*3/uL Absolute Neuts (auto) 2.5 (2.0-8.3) x10*3/uL Absolute Nucleated RBC 0.000 (0.0-0.012) X10*3/uL Nucleated RBC % (auto) 0.0 (0.0-0.2) /100WBC Sodium 138 (135-145) mmol/L Potassium 3.9 (3.3-5.1) mmol/L Chloride 103 (96-108) mmol/L Carbon Dioxide 29 (22-29) mmol/L Anion Gap 10 L (12-20) BUN 13 (9-16) mg/dL Creatinine 0.65 (0.5-1.4) mg/dL Estim Creat Clear Calc 84.7 Estimated GFR > 60 Random Glucose 90 (60-115) mg/dL Calcium 8.7 (8.4-10.2) mg/dL Total Bilirubin 0.3 (0.0-1.0) mg/dL Direct Bilirubin 0.1 (0.0-0.5) mg/dL AST 15 (5-31) U/L ALT 8 (0-31) U/L Alkaline Phosphatase 53 (39-117) U/L Total Protein 6.4 L (6.5-8.0) g/dL Albumin 3.4 L (3.5-5.0) g/dL Lipase 13 (8-78) U/L Independent Interpretation I performed an independent interpretation of an: CT Scan External Record Review External record reviewed: Inpatient record Chronic Conditions Patient has a known seizure disorder Social Determinants Patient's correction resident Discharge Plan Discharge Clinical Impression: Fall, Head injury, Seizure Patient Disposition: Home, Self-Care Instructions: Fall Prevention for Older Adults (ED), Epilepsy in Older Adults (ED) Additional Instructions: Your seen in the emergency room after falling and hitting her head and having seizure. You were seen and had a CT and labs done which were all unremarkable. Please call follow-up. If you have any other concerns please do not hesitate to come back to emergency department Prescriptions: No Action acetaminophen 325 mg tablet PO loperamide 2 mg capsule PO sertraline 100 mg tablet 100 mg PO BID clonazepam 1 mg tablet 1 mg PO BID PRN (Reason: unknown) bacitracin 500 unit/gram ointment topical BID magnesium hydroxide [Milk of Magnesia] 400 mg/5 mL suspension PO trazodone 150 mg tablet 75 mg PO QPM nystatin 100,000 unit/gram cream topical omeprazole 20 mg capsule,delayed release(DR/EC) 20 mg PO DAILY fluticasone propionate 50 mcg/actuation spray,suspension intranasal divalproex [Depakote Sprinkles] 125 mg capsule, delayed rel sprinkle 625 mg PO BID loratadine 10 mg tablet 10 mg PO DAILY multivitamin with folic acid [Thera] 400 mcg tablet 1 tab PO DAILY Print Language: Divehi
[2023-09-13 08:00] VITALS: BP 145/76; BP 189/77; PULSE 74; PULSE 80; RESP 14; TEMP 36.5; O2SAT 97; BMI 21.6
[2023-09-13 08:33] VITALS: BP 182/80; PULSE 73; RESP 16; TEMP 36.8
[2023-09-13] MEDS: 0.9 % Sodium Chloride 1,000 ML 999 ML IV (09:16)
[2023-09-13 09:21] LABS: MANUAL DIFF FLAG NO
[2023-09-13 09:24] LABS: Basophils Absolute Auto 0.1 X10*3/uL (0.0-0.2); Basophils Percent Auto 1.5 % (0-2); Eosinophils Absolute Auto 0.4 X10*3/uL (0.0-0.4); Eosinophils Percent Auto 8.1 % (0-4); Hematocrit 36.2 % (37.0-47.0); Hemoglobin 12.4 g/dl (12.0-16.0); Imm Gran Abs Auto 0.02 X10*3/uL (0.00-0.03); Imm Gran Pct Auto 0.4 % (0.0-0.4); Lymphocytes Absolute Auto 1.4 X10*3/uL (1.2-4.9); Lymphocytes Percent Auto 29.7 % (20-40); Mean Corpuscular HGB Conc 34.3 g/dl (31.0-35.0); Mean Corpuscular Hemoglobin 32.5 pg (27.0-33.0); Mean Corpuscular Volume 94.8 fL (80.0-98.0); Monocytes Absolute Auto 0.4 X10*3/uL (0.1-1.2); Monocytes Percent Auto 8.5 % (2-11); Neutrophils Absolute Auto 2.5 x10*3/uL (2.0-8.3); Neutrophils Percent Auto 51.8 % (45-73); Platelet Count 179 X10*3/uL (160-400); Red Blood Count 3.82 X10*6/uL (4.20-5.50); Red Cell Distribution Width 12.2 % (11.0-16.0); White Blood Count 4.8 X10*3/uL (4.8-10.8)
--- NOTE | 2023-09-13 09:42 | PC.NURSE ---
LATE ENTRY: PT FROM [facility] VIA AMBULANCE. CHEIF C/O WITNESSED FALL. PT WAS BRUSHING HER HAIR IN THE BATHROOM, FELL BACKWARD HITTING THE BACK OF HER HEAD AND STARTED SEIZING. NO LOC. PT HAS HX OF SEIZURE, LAST SEIZURE WAS LAST WK. PT NONVERBAL AT BASELINE, CUSTODIAL STAFF YENY IS AT HER BEDSIDE AND PROVIDED ALL INFORMATION. PT NOT ON THINNERS. 20g IV INSERTED IN HER R WRIST IN ROUTE TO THE ER. PT WAS TAKEN TO CT SCAN, LABS DRAWN, AND FLUIDS STARTED DOCUMENTED. PT RESTING QUETLY AT THIS TIME, NO APPARENT DISTRESS.
[2023-09-13 10:57] LABS: Alanine Aminotransferase 8 U/L (0-31); Albumin Level 3.4 g/dL (3.5-5.0); Alkaline Phosphatase 53 U/L (39-117); Anion Gap 10 (12-20); Aspartate Amino Transferase 15 U/L (5-31); Bilirubin Direct 0.1 mg/dL (0.0-0.5); Bilirubin Total 0.3 mg/dL (0.0-1.0); Blood Urea Nitrogen 13 mg/dL (9-16); Calcium 8.7 mg/dL (8.4-10.2); Carbon Dioxide 29 mmol/L (22-29); Chloride 103 mmol/L (96-108); Creatinine Clr Calc Pharmacy 84.7; Estimated Glomerular Filt Rate > 60; Glucose Random 90 mg/dL (60-115); Lipase 13 U/L (8-78); Potassium 3.9 mmol/L (3.3-5.1); Sodium 138 mmol/L (135-145); Total Protein 6.4 g/dL (6.5-8.0)
[2023-09-13 12:00] VITALS: BP 168/75; PULSE 75; RESP 17; O2SAT 95
[2023-09-13 13:17] LABS: Ammonia 18 umol/L (13-55); Valproate 62.3 mcg/mL (50.0-100.0)
--- NOTE | 2023-09-13 15:05 | PC.NURSE ---
LATE ENTRY: PT WAS MEDICALLY CLEARED FOR DISCHARGE. THE CREATIVE DESIGNER REQUESTED A NEURO EVAL PRIOR TO BEING DISCHARGE BECAUSE THE SEIZURES ARE NEW. DR. CERNA REACHED OUT TO [facility] AND IS FOLLOWING -UP. PT AND ENGINEERING TECHNOLOGY INSTRUCTOR AWARE OF PLAN. LUNCH GIVEN TO PT.
[2023-09-13 15:28] VITALS: BP 128/58; PULSE 79; RESP 16; TEMP 36.6; O2SAT 97
[2023-09-13 15:45] VITALS: BP 128/58; PULSE 79; RESP 16; TEMP 36.6; O2SAT 97
== END 2023-09-13 15:46 | disposition home or self-care (01) ==
PROVIDERS: Emergency Provider Student in an Organized Health Care Education/Training Program
DX: S09.90XA Unspecified injury of head, initial encounter (principal); R56.9 Unspecified convulsions; R51.9 Headache, unspecified; M54.2 Cervicalgia; W01.10XA Fall on same level from slipping, tripping and stumbling with subsequent striking against unspecified object, initial encounter; Y93.9 Activity, unspecified; Y92.9 Unspecified place or not applicable; Y99.8 Other external cause status; Z79.899 Other long term (current) drug therapy
CPT/HCPCS: 36415; 70450; 72125; 80048; 80076; 80164; 82140; 83690; 85025; 96360; 99284

== ENCOUNTER 2023-10-26 15:43 | Outpatient (REF) | payer MEDICARE, MEDICAID, SELFPAY ==
[2023-10-26 17:43] LABS: Valproate 82.2 mcg/mL (50.0-100.0)
== END 2023-10-26 15:44 | disposition home or self-care (01) ==
LOC: HO.LAB 15:43
PROVIDERS: PCP Family Medicine; Visit Provider Psychiatry & Neurology Neurology
DX: G40.909 Epilepsy, unspecified, not intractable, without status epilepticus (principal)
CPT/HCPCS: 36415; 80164

== ENCOUNTER 2024-01-12 09:11 | Day surgery (SDC) | payer MEDICARE, MEDICAID, SELFPAY ==
--- NOTE | 2024-01-11 12:23 | HO.ANESPROP2 ---
Documented by User: Renetta Wilson NP 01/11/24 12:25 HPI - Anesthesia Eval Consult details Narrative: 68yo F for [facility] Past Medical History Medical History Epileptic seizure H/O hemorrhoids GERD (gastroesophageal reflux disease) Arthritis Lymphocytic colitis Loose stools Mood disorder Anxiety Breast cancer Surgical History Surgical History History of partial hysterectomy Hx of left mastectomy Hx of cataract extraction H/O colonoscopy History of Problems with Anesthesia: No Social History Social History Alcohol intake: never Patient Tobacco Use Status: Never used Tobacco Use of substances other than those prescribed or required for medical reasons: No Are you DNR?: No Advance Directives: No Advance Directives Information Provided: Yes Advance Directives Date on File: 03/10/23 Meds Allergies Allergy/AdvReac Type Severity Reaction Status Date / Time tamoxifen [TAMOXIFEN] Allergy Unknown OUT OF Verified 09/13/23 08:26 SORTS Home Medications ?Medication ?Instructions ?Recorded ?Confirmed ?Last Taken ?Type acetaminophen 325 mg tablet mg PO 03/09/23 Unknown History bacitracin 500 unit/gram topical topical BID 03/09/23 Unknown History ointment clonazepam 1 mg tablet 1 mg PO BID PRN unknown 03/09/23 03/09/23 01/12/24 History divalproex 125 mg capsule,delayed 625 mg PO BID 03/09/23 03/09/23 01/12/24 History release sprinkle (Depakote Sprinkles) fluticasone propionate 50 spray intranasal 03/09/23 Unknown History mcg/actuation nasal spray,suspension loperamide 2 mg capsule mg PO 03/09/23 Unknown History loratadine 10 mg tablet 10 mg PO DAILY 03/09/23 03/09/23 Unknown History magnesium hydroxide 400 mg/5 mL ml PO 03/09/23 Unknown History oral suspension (Milk of Magnesia) multivitamin with folic acid 400 1 tab PO DAILY 03/09/23 03/09/23 Unknown History mcg tablet (Thera) nystatin 100,000 unit/gram topical topical 03/09/23 Unknown History cream omeprazole 20 mg capsule,delayed 20 mg PO DAILY 03/09/23 03/09/23 01/12/24 History release sertraline 100 mg tablet 100 mg PO BID 03/09/23 03/09/23 01/12/24 History trazodone 150 mg tablet 75 mg PO QPM 03/09/23 03/09/23 Unknown History Exam Narrative Narrative: EKG 08/2023 Vent. Rate : 067 BPM Atrial Rate : 067 BPM P-R Int : 148 ms QRS Dur : 084 ms QT Int : 390 ms P-R-T Axes : 065 058 066 degrees QTc Int : 412 ms Normal sinus rhythm Normal ECG When compared with ECG of 18-FEB-2023 11:38, Nonspecific T wave abnormality no longer evident in Inferior leads Assessment and Plan Assessment Anesthesia Assessment: Chart Reviewed Final Anesthetic Review History of Problems with Anesthesia: No Documented by User: Marianna Tolbert MD 01/12/24 10:21 [facility] Past Medical History Medical History Epileptic seizure H/O hemorrhoids GERD (gastroesophageal reflux disease) Arthritis Lymphocytic colitis Loose stools Mood disorder Anxiety Breast cancer Family History Family history of problems with anesthesia: No Surgical History Surgical History History of partial hysterectomy Hx of left mastectomy Hx of cataract extraction H/O colonoscopy Social History Social History Alcohol intake: never Patient Tobacco Use Status: Never used Tobacco Use of substances other than those prescribed or required for medical reasons: No Are you DNR?: No Advance Directives: No Advance Directives Information Provided: Yes Advance Directives Date on File: 03/10/23 Meds Allergies Allergy/AdvReac Type Severity Reaction Status Date / Time tamoxifen [TAMOXIFEN] Allergy Unknown OUT OF Verified 09/13/23 08:26 SORTS Home Medications ?Medication ?Instructions ?Recorded ?Confirmed ?Last Taken ?Type acetaminophen 325 mg tablet mg PO 03/09/23 Unknown History bacitracin 500 unit/gram topical topical BID 03/09/23 Unknown History ointment clonazepam 1 mg tablet 1 mg PO BID PRN unknown 03/09/23 03/09/23 01/12/24 History divalproex 125 mg capsule,delayed 625 mg PO BID 03/09/23 03/09/23 01/12/24 History release sprinkle (Depakote Sprinkles) fluticasone propionate 50 spray intranasal 03/09/23 Unknown History mcg/actuation nasal spray,suspension loperamide 2 mg capsule mg PO 03/09/23 Unknown History loratadine 10 mg tablet 10 mg PO DAILY 03/09/23 03/09/23 Unknown History magnesium hydroxide 400 mg/5 mL ml PO 03/09/23 Unknown History oral suspension (Milk of Magnesia) multivitamin with folic acid 400 1 tab PO DAILY 03/09/23 03/09/23 Unknown History mcg tablet (Thera) nystatin 100,000 unit/gram topical topical 03/09/23 Unknown History cream omeprazole 20 mg capsule,delayed 20 mg PO DAILY 03/09/23 03/09/23 01/12/24 History release sertraline 100 mg tablet 100 mg PO BID 03/09/23 03/09/23 01/12/24 History trazodone 150 mg tablet 75 mg PO QPM 03/09/23 03/09/23 Unknown History Exam Airway Mallampati Class: II TM Dist: >3cm Neck ROM: Full Heart: rrr Lungs: cta Assessment and Plan Assessment Anesthesia Assessment: Anesthesia Plan Discussed Final Anesthetic Review Family History of Problems with Anesthesia: No NPO: Yes ASA Class: III Final Preanesthetic Review: No Changes in Pt Med Stat, Meds/Allgs Chart Reviewed, Consent Obtained/Reviewed and Anes Risks/Benef Reviewed Patient Risk: Intermediate Procedure Risk: Low Anesthetic Plan Anesthetic Plan: MAC: Disposition: Standard PACU
--- OUTSIDE RECORDS SUMMARY | 2024-01-12 09:13 | XMS_ITS | Patient Health Record ---
Author Organization [facility] Address [address] [place] [address] Care Team Providers Care Health And Safety Manager Name Role Phone Stacy JARA Gina Primary Care Provider Unavailab Ajay Feliciano Jr Unavailable Pro Warren Unavailable [phone] ALLERGIES Allergen (clinical drug ingredient) Drug/Non Drug Allergy documented on EMR Reaction Allergy Type Onset Date Status tamoxifen Tamoxifen Unknown Drug Allergy Active RESULTS Component Value Reference Range Notes Pathology Reviewed date:03/19/2023 09:12:25 AM Interpretation: Performing Lab:[facility], [address] [place] [id number] Notes/Report: REASON FOR REFERRAL No Information MEDICATIONS Medication SIG (Take, Route, Frequency, Duration) Notes Start Date End Date Status Dulcolax (colon prep) 5 MG take at 3:00 p.m and 7:00p.m. Orally two tablets twice a day for one day for 1 day 01/26/2023 Active Bacitracin 500 UNIT/GM External for 7 Active MiraLax (colon prep) 8.3 ounce ((238) grams mixed with Gatorade or Crystal Light orally begin at 5:00 p.m. the day before the procedure for 1 day 01/26/2023 Active Calcium + D 500-1000-40 MG-UNT-MCG as directed Orally Active Docusate Sodium 100 MG 1 capsule as need ed Orally Once a day for 30 day(s) Active MiraLax Mix-In [place] 17 GM 1 packet mixed with 8 ounces of fluid Orally Once a day as needed for constipation, hold for diarrhea for 30 day(s) 02/18/2023 Active Loperamide HCl 2 MG 1 capsule as needed for diarrhea daily for 30 days 03/11/2023 Active guaiFENesin 100 MG/5ML 10 mL as needed O rally every 4 hrs for cough Active Preparation H Hydrocortisone Active Senna 8.6 MG 2 tablets at bedtime as needed Orally Once a day for 30 day(s) Active Laxative Pills Activ e Loratadine 10 MG Oral for 30 A ctive Sertraline HCl 100 MG Oral for 30 Active clonazePAM 1 MG Oral for 30 Ac tive Fluticasone Propionate 50 MCG/ACT Nasal for 30 Active Preparation H 0.25-88.44 % as directed Rectal Active Acetaminophen 325 MG Oral for 30 Active Thera - Oral for 30 Active Milk of Magnesia 2400 MG/30ML 5 mL at least 4 hours between doses as needed Orally Four times a day Active Denta 5000 Plus 1.1 % as directed Dental Active Omeprazole 20 MG Oral for 30 A ctive GNP Milk of Magnesia 1200 MG/15ML Oral for 24 Active Nystatin 045421 UNIT/GM External for 14 Active traZODone HCl 150 MG Oral for 30 Active Divalproex Sodium 125 MG Oral for 30 Active IMMUNIZATIONS Vaccine Route Administration Date Status Comme nts Influenza Unknown 04/28/2023 Administered SOCIAL HISTORY Tobacco Use: Social History Observation [...] Notes Problem Lymphocytic colitis (K52.832) Active confirmed 6712362661 Problem Colon cancer screening (Z12.11) Active confirmed 991100394 Problem History of colon polyps (Z86.010) Active confirmed 359615888 VITAL SIGNS Temperature 97.5 degrees Fahrenheit 12/16/2023 Weig ht is stable from 01/28 Blood pressure diastolic 00 mm Hg 12/16/2023 Marcos ght is stable from 01/28 Height 68 in 12/16/2023 Weight is stabl e from 01/28 Blood pressure systolic 000 mm Hg 12/16/2023 Weig ht is stable from 01/28 Weight 136 lbs 12/16/2023 Weight is stabl e from 01/28 BMI 20.68 kg/m2 12/16/2023 Weight is stabl e from 01/28 Encounters Encounter Location Date Provider Diagnosis [facility] [address]patient [address] [place], [place] [id number] 03/10/2023 Ajay Guaman Jr Encounter for screening colonoscopy Z12.11 ; Colon polyps K63.5 and Lymphocytic colitis K52.832 [facility] Outpatient [address] [place], [place] [phone] 01/12/2024 Ajay Guaman Jr [facility] [address] [place] [phone] 01/21/2023 Ajay Guaman Jr [facility] [address] [place] [phone] 01/28/2023 Pro Warren [facility] [address] [place] [phone] 01/26/2023 Ajay Guaman Jr Lymphocytic colitis K52.832 and Colon cancer screening Z12.11 [facility] [address] [place] [phone] 12/16/2023 Ajay Guaman Jr Lymphocytic colitis K52.832 ; Colon cancer screening Z12.11 and History of colon polyps Z86.010 [facility] [address] [place] [phone] 02/17/2023 Ajay Guaman Jr [facility] [address] [place] [phone] 03/11/2023 Ajay Guaman Jr [facility] [address] [place] [phone] 03/19/2023 Ajay Guaman Jr [facility] [address] [place] [phone] 04/27/2023 Ajay Guaman Jr ASSESSMENTS Encounter Date Diagnosis Assessment Notes Treatment Notes Treatment Clinical Notes 03/10/2023 Encounter for screening colonoscopy (ICD-10 - Z12.11) 03/10/2023 Colon polyps (ICD-10 - K63.5) 01/26/2023 Colon cancer screening (ICD-10 - Z12.11) Colonoscopy material was printed 01/26/2023 Lymphocytic colitis (ICD-10 - K52.832) 12/16/2023 Colon cancer screening (ICD-10 - Z12.11) 12/16/2023 Lymphocytic colitis (ICD-10 - K52.832) 03/10/2023 Lymphocytic colitis (ICD-10 - K52.832) 12/16/2023 History of colon polyps (ICD-10 - Z86.010) PLAN OF TREATMENT Future Test Test Name Order Date COLONOSCOPY 01/26/2023 COLONOSCOPY 12/16/2023 Next Appt Details Provider Name:Ajay munguia Jr, 01/12/2024 11:10:00 AM, [address] [place] [address], [id number], Provider Name:Ajay munguia Jr, 03/16/2024 10:40:00 AM, [address] [place] [address], [facility] [address], [place], [address], Insurance Providers Payer Name Payer Address Payer Phone Subscriber Number Group Number Insured Name Patient Relationship to Insured Coverage Start Date Coverage End Date MEDICARE OF [place] [address] [place] [address] [phone] [id number] ESTRELLITA NICHOLS Self - patient is the insured MEDICAID OF [facility] [employer] [facility] [address] [place] [address] [phone] [id number] ESTRELLITA NICHOLS Self - patient is the insured MEDICAL (GENERAL) HISTORY Medical History History ICD Code Colonoscopy 03/30, multiple tubular adenomas, area of colitis in the sigmoid. One year followup due to prep breast cancer arthritis gerd hemorrhoids hypothyroidism bipolar disorder Seizure disorder Intellectual disability/chronic static e ncephalopathy Surgical History Surgery Date(Month/Year) cateract surgery left mastectomy partial hysterectomy Hospitalization History Reason Date(Month/Year) seizures
--- OUTSIDE RECORDS SUMMARY | 2024-01-12 09:13 | XMS_ITS ---
Author Organization [facility] Address [address] [place] [address] Care Team Providers Care Geomagnetist Name Role Phone Stacy JARA, Gina Primary Care Provider Unavailab Ajay Feliciano Jr Unavailable [phone] REASON FOR VISIT results Encounters Encounter Location Date Provider Diagnosis [facility] [address] [facility] [address] [place] [address] 04/27/2023 Ajay Guaman Jr PLAN OF TREATMENT Next Appt Details Provider Name:Ajay munguia Jr, 01/12/2024 11:10:00 AM, [address] [place] [address] , [place], [place], [phone], Provider Name:Ajay munguia Jr, 03/16/2024 10:40:00 AM, [address] [facility] [facility], [address], [place], [address],
--- OUTSIDE RECORDS SUMMARY | 2024-01-12 09:13 | XMS_ITS ---
Author Organization [facility] Address [address] [place] [address] Care Team Providers Care Welder 2Nd Shift Name Role Phone Stacy JARA, Gina Primary Care Provider Unavailab Ajay Feliciano Jr Unavailable REASON FOR VISIT screening,hx polyps Encounters Encounter Location Date Provider Diagnosis [facility] [address] [place] [phone] 01/12/2024 Ajay Guaman Jr PLAN OF TREATMENT Next Appt Details Provider Name:Ajay munguia Jr, 01/12/2024 11:10:00 AM, [address] [place] [address] , [place], [place], [phone], Provider Name:Ajay munguia Jr, 03/16/2024 10:40:00 AM, [address], [address], [place], [address],
--- OUTSIDE RECORDS SUMMARY | 2024-01-12 09:13 | XMS_ITS ---
Author Organization [facility] Address [address] [place] [address] Care Team Providers Care Oracle Engineer Name Role Phone Stacy JARA, Gina Primary Care Provider UnavailAjay Weiner Jr Unavailable ALLERGIES Allergen (clinical drug ingredient) Drug/Non Drug Allergy documented on EMR Reaction Allergy Type Onset Date Status tamoxifen Tamoxifen Unknown Drug Allergy Active REASON FOR VISIT Patient presents today for a weight loss, increase in frequency of bowel movements MEDICATIONS Medication SIG (Take, Route, Frequency, Duration) Notes Start Date End Date Status Loratadine 10 MG Oral for 30 A ctive Sertraline HCl 100 MG Oral for 30 Active Fluticasone Propionate 50 MCG/ACT Nasal for 30 Active Acetaminophen 325 MG Oral for 30 Active Omeprazole 20 MG Oral for 30 A ctive clonazePAM 1 MG Oral for 30 Ac tive guaiFENesin 100 MG/5ML 10 mL as needed O rally every 4 hrs for cough Active Preparation H Hydrocortisone Active Senna 8.6 MG 2 tablets at bedtime as needed Orally Once a day for 30 day(s) Active Laxative Pills Activ e Preparation H 0.25-88.44 % as directed Rectal Active Calcium + D 500-1000-40 MG-UNT-MCG as directed Orally Active Docusate Sodium 100 MG 1 capsule as need ed Orally Once a day for 30 day(s) Active Milk of Magnesia 2400 MG/30ML 5 mL at least 4 hours between doses as needed Orally Four times a day Active Denta 5000 Plus 1.1 % as directed Dental Active Dulcolax (colon prep) 5 MG take at 3:00 p.m and 7:00p.m. Orally two tablets twice a day for one day for 1 day 01/26/2023 Active Bacitracin 500 UNIT/GM External for 7 Active MiraLax (colon prep) 8.3 ounce ((238) grams mixed with Gatorade or Crystal Light orally begin at 5:00 p.m. the day before the procedure for 1 day 01/26/2023 Active MiraLax Mix-In Lund 17 GM 1 packet mixed with 8 ounces of fluid Orally Once a day as needed for constipation, hold for diarrhea for 30 day(s) 02/18/2023 Active Loperamide HCl 2 MG 1 capsule as needed for diarrhea daily for 30 days 03/11/2023 Active Thera - Oral for 30 Active GNP Milk of Magnesia 1200 MG/15ML Oral for 24 Active Nystatin 577267 UNIT/GM External for 14 Active traZODone HCl 150 MG Oral for 30 Active Divalproex Sodium 125 MG Oral for 30 Active SOCIAL HISTORY [...] W/U Status Risk SNOMED Code Notes Problem History of colon polyps (Z86.010) Active confirmed 754195891 VITAL SIGNS BMI 20.68 kg/m2 12/16/2023 Blood pressure systolic 000 mm Hg 12/16/19 24 Blood pressure diastolic 00 mm Hg 024 Height 68 in 12/16/2023 Temperature 97.5 degrees Fahrenheit 12/16/19 24 Weight 136 lbs 12/16/2023 Weight is stable from 01/28 Encounters Encounter Location Date Provider Diagnosis [facility] [address] [place] [address] 12/16/2023 Ajay Guaman Jr Lymphocytic colitis K52.832 ; Colon cancer screening Z12.11 and History of colon polyps Z86.010 ASSESSMENTS Encounter Date Diagnosis Assessment Notes Treatment Notes Treatment Clinical Notes 12/16/2023 Lymphocytic colitis (ICD-10 - K52.832) 12/16/2023 Colon cancer screening (ICD-10 - Z12.11) 12/16/2023 History of colon polyps (ICD-10 - Z86.010) PLAN OF TREATMENT Future Test Test Name Order Date COLONOSCOPY 12/16/2023 Next Appt Details Follow Up: 1 Year, Reason: Provider Name:Ajay munguia Jr, 01/12/2024 11:10:00 AM, [address] [place] [address] , [place], [place], [phone], Provider Name:Ajay munguia Jr, 03/16/2024 10:40:00 AM, [address] [facility], [address], [place], [address], Progress Notes * Examination Category Sub-Category Detail Notes General Examination GENERAL APPEARANCE: in no ac neymar distress HEAD: normocephalic EYES: sclera non-icteric NECK/THYROID: no lymphadenopathy HEART: S1, S2 normal, no mu rmurs CHEST: normal shape and exp ansion LUNGS: clear to auscultatio n bilaterally ABDOMEN: soft, nontender, non distended, bowel sounds present, no organomegaly SKIN: anicteric EXTREMITIES: no clubbing, cyanosi s, or edema PSYCH: Nonverbal ORAL CAVITY: mucosa moist
[2024-01-12 09:36] VITALS: BP 145/70; PULSE 73; RESP 16; TEMP 36.3; O2SAT 97; BMI 20.5
[2024-01-12] MEDS: Lactated Ringers 1,000 ML 100 ML IVCONT (09:52)
--- NOTE | 2024-01-12 10:50 | MHC.SHP ---
Pre-Procedural Eval Section A - 24 Hr Update-Section A only Date of Service: 01/15/24 The patient is an INPATIENT: No Changes since office visit: No Cold of Flu in the past 2 weeks, No New Medical Problems, No Changes in Medication and No Patient answered all questions The patient has been examined within 24 hours of the surgical procedure. The History & Physical has been completed within 30 days and I have reviewed it.: Yes Section B - Complete if H&P > 30 days Chief Complaint: Encounter for screening for malignant neoplasm of Allergies: Allergies Allergy/AdvReac Type Severity Reaction Status Date / Time tamoxifen [TAMOXIFEN] Allergy Unknown OUT OF Verified 09/13/23 08:26 SORTS Plan I have reviewed the history and physical and performed a pertinent physical examination on my patient. No changes have occurred unless specified. Time Spent With Patient Time: Total time managing care of this patient today ____ minutes.
[2024-01-12 11:35] VITALS: BP 96/49; PULSE 58; RESP 16; TEMP 36.3; O2SAT 93
[2024-01-12 11:50] VITALS: BP 133/59; PULSE 68; RESP 18; TEMP 36.2; O2SAT 99
--- NOTE | 2024-01-12 12:35 | OP_ITS ---
DATE OF SERVICE: 01/12/2024 SURGEON: Ajay Guaman MD INDICATIONS: Colon cancer screening and prior history of adenomatous colon polyps. PREOPERATIVE DIAGNOSIS: POSTOPERATIVE DIAGNOSIS: PROCEDURE PERFORMED: Colonoscopy to the terminal ileum. ESTIMATED BLOOD LOSS: COMPLICATIONS: ANESTHESIA: Monitored anesthesia care. ASSISTANTS: SPECIMENS: DESCRIPTION OF PROCEDURE: A history and physical was performed. The risks and benefits of the procedure were explained to the patient's guardian and informed consent was obtained. The patient was placed in the left lateral decubitus position. The Olympus video gastroscope was introduced into the rectum and advanced to the cecum after a digital rectal exam was performed and was found to be normal. The cecum was identified by transillumination, palpation, and identification of ileocecal valve. Examination was performed. The scope was removed. She tolerated the procedure well and was returned to the recovery area in stable condition. FINDINGS: The terminal ileum was examined and appeared normal. The visualized colonic mucosa was normal. The quality of the prep was good. No polyps were identified. Retroflexed examination showed moderate-sized internal hemorrhoids. IMPRESSION: Normal colonoscopy. RECOMMENDATION: 1. Follow up as needed. 2. Repeat colonoscopy is recommended in 5 years due to history of prior colon polyps. MD MAIKEL Camacho/GRAHAML / [id number]
== END 2024-01-12 12:15 | disposition home or self-care (01) ==
PROVIDERS: PCP Family Medicine; Visit Provider Internal Medicine Gastroenterology
PROC: 0DJD8ZZ Inspection of Lower Intestinal Tract, Via Natural or Artificial Opening Endoscopic (ICD-10-PCS; CPT 45378; principal; 2024-01-12 12:00)
DX: Z12.11 Encounter for screening for malignant neoplasm of colon (principal); Z86.010 Personal history of colon polyps; K64.8 Other hemorrhoids; K52.89 Other specified noninfective gastroenteritis and colitis; K21.9 Gastro-esophageal reflux disease without esophagitis; E03.9 Hypothyroidism, unspecified; G40.909 Epilepsy, unspecified, not intractable, without status epilepticus; G93.49 Other encephalopathy; F79 Unspecified intellectual disabilities; Z85.3 Personal history of malignant neoplasm of breast; Z79.899 Other long term (current) drug therapy; Z88.8 Allergy status to other drugs, medicaments and biological substances
CPT/HCPCS: G0105; J2704

== ENCOUNTER 2024-05-23 17:49 | Emergency (ER) | payer MEDICARE, MEDICAID, SELFPAY ==
--- NOTE | ~2024-05-23 | CT_ITS ---
EXAM: CT HEAD WITHOUT CONTRAST CT CERVICAL SPINE INDICATION: trauma TECHNIQUE: A noncontrast CT scan was performed from the skull base to the vertex. A noncontrast CT scan of the cervical spine was performed from the base of the skull through T1 at 2.5 mm and 0.625 mm collimation. Coronal and sagittal reformats were obtained at the acquisition workstation. This CT examination was performed using dose optimization techniques as appropriate, variously including the following: * Automated exposure control * Adjustment of mA and/or kV according to patient size (this includes techniques or standardized protocols for targeted exams where dose is matched to indication/reason for exam; i.e. extremities or head) * Use of iterative reconstruction technique Dose length product is 213 mGy-cm. COMPARISON: CT 09/13/2023 FINDINGS: Head: There is no evidence of acute intracranial hemorrhage or edematous large vessel territorial infarction. No abnormal mass effect or midline shift is seen. Taylor to white matter differentiation is well preserved. No abnormal extra-axial fluid collections are identified. Commensurate prominence of the ventricles and sulci is compatible with generalized parenchymal volume loss. There is patchy periventricular and subcortical white matter hypoattenuation, most likely representing microangiopathic disease. No acute calvarial fracture.. Paranasal sinuses and mastoid air cells are well-aerated. Cervical Spine: The atlantooccipital and atlantoaxial articulation is maintained.. Stable minimal degenerative retrolisthesis of C3 on C4. No evidence of acute fracture or subluxation. Mild -moderate multilevel disc degenerative changes. Multilevel facet degeneration. The central bony canal is maintained. No prevertebral soft tissue swelling. No suspicious findings in lung apices. CT/CT head/brain wo IV con IMPRESSION: No CT evidence of acute intracranial hemorrhage or edematous territorial infarction.. No CT evidence of acute cervical spine fracture or traumatic subluxation. Electronically signed by: Ruddy Montalvo MD 05/23/2024 07:37 PM EST
--- NOTE | ~2024-05-23 | CT_ITS ---
EXAM: CT HEAD WITHOUT CONTRAST CT CERVICAL SPINE INDICATION: trauma TECHNIQUE: A noncontrast CT scan was performed from the skull base to the vertex. A noncontrast CT scan of the cervical spine was performed from the base of the skull through T1 at 2.5 mm and 0.625 mm collimation. Coronal and sagittal reformats were obtained at the acquisition workstation. This CT examination was performed using dose optimization techniques as appropriate, variously including the following: * Automated exposure control * Adjustment of mA and/or kV according to patient size (this includes techniques or standardized protocols for targeted exams where dose is matched to indication/reason for exam; i.e. extremities or head) * Use of iterative reconstruction technique Dose length product is 213 mGy-cm. COMPARISON: CT 09/13/2023 FINDINGS: Head: There is no evidence of acute intracranial hemorrhage or edematous large vessel territorial infarction. No abnormal mass effect or midline shift is seen. Taylor to white matter differentiation is well preserved. No abnormal extra-axial fluid collections are identified. Commensurate prominence of the ventricles and sulci is compatible with generalized parenchymal volume loss. There is patchy periventricular and subcortical white matter hypoattenuation, most likely representing microangiopathic disease. No acute calvarial fracture.. Paranasal sinuses and mastoid air cells are well-aerated. Cervical Spine: The atlantooccipital and atlantoaxial articulation is maintained.. Stable minimal degenerative retrolisthesis of C3 on C4. No evidence of acute fracture or subluxation. Mild -moderate multilevel disc degenerative changes. Multilevel facet degeneration. The central bony canal is maintained. No prevertebral soft tissue swelling. No suspicious findings in lung apices. CT/CT cervical spine wo IV con IMPRESSION: No CT evidence of acute intracranial hemorrhage or edematous territorial infarction.. No CT evidence of acute cervical spine fracture or traumatic subluxation. Electronically signed by: Ruddy Montalvo MD 05/23/2024 07:37 PM [facility]
[2024-05-23 17:56] VITALS: BP 146/59; BP 147/64; PULSE 75; PULSE 76; RESP 16; TEMP 36.4; O2SAT 100; BMI 21.8
[2024-05-23 18:48] LABS: MANUAL DIFF FLAG NO
[2024-05-23 18:49] LABS: Basophils Absolute Auto 0.1 X10*3/uL (0.0-0.2); Basophils Percent Auto 1.3 % (0-2); Eosinophils Absolute Auto 0.1 X10*3/uL (0.0-0.4); Hematocrit 33.6 % (37.0-47.0); Hemoglobin 11.8 g/dl (12.0-16.0); Imm Gran Abs Auto 0.02 X10*3/uL (0.00-0.03); Imm Gran Pct Auto 0.4 % (0.0-0.4); Lymphocytes Absolute Auto 1.6 X10*3/uL (1.2-4.9); Lymphocytes Percent Auto 33.9 % (20-40); Mean Corpuscular HGB Conc 35.1 g/dl (31.0-35.0); Mean Corpuscular Hemoglobin 33.1 pg (27.0-33.0); Mean Corpuscular Volume 94.1 fL (80.0-98.0); Mean Platelet Volume 11.7 fL (9.4-12.3); Monocytes Absolute Auto 0.6 X10*3/uL (0.1-1.2); Neutrophils Absolute Auto 2.3 x10*3/uL (2.0-8.3); Neutrophils Percent Auto 49.4 % (45-73); Platelet Count 164 X10*3/uL (160-400); Red Blood Count 3.57 X10*6/uL (4.20-5.50); Red Cell Distribution Width 11.5 % (11.0-16.0); White Blood Count 4.6 X10*3/uL (4.8-10.8)
--- NOTE | 2024-05-23 18:52 | ED_ITS ---
HPI - Fall General Chief Complaint: Fall Stated Complaint: unwit fall @snf, +c-collar Time Seen by Provider: 05/23/24 17:51 Source: patient Mode of arrival: ambulatory Limitations: other (non-verbal) History of Present Illness ED Provider: Sheila humphrey PA-C HPI Narrative: 68-year-old female with a history of dementia who was now nonverbal as a result of the disease process, seizure disorder, GERD, lymphocytic colitis, mood disorder, anxiety, breast cancer presents after unwitnessed fall at [facility]. Patient was in the bathroom when she fell. A staff member was outside the door, they helped her up, the patient completed using the restroom, she then walked back to her room. Unclear if she struck her head. Patient keeps touching her forehead. Related Data Home Medications ?Medication ?Instructions ?Recorded ?Confirmed acetaminophen 325 mg tablet mg PO 03/09/23 bacitracin 500 unit/gram topical topical BID 03/09/23 ointment clonazepam 1 mg tablet 1 mg PO BID PRN unknown 03/09/23 03/09/23 divalproex 125 mg capsule,delayed 625 mg PO BID 03/09/23 03/09/23 release sprinkle (Depakote Sprinkles) fluticasone propionate 50 spray intranasal 03/09/23 mcg/actuation nasal spray,suspension loperamide 2 mg capsule mg PO 03/09/23 loratadine 10 mg tablet 10 mg PO DAILY 03/09/23 03/09/23 magnesium hydroxide 400 mg/5 mL ml PO 03/09/23 oral suspension (Milk of Magnesia) multivitamin with folic acid 400 1 tab PO DAILY 03/09/23 03/09/23 mcg tablet (Thera) nystatin 100,000 unit/gram topical topical 03/09/23 cream omeprazole 20 mg capsule,delayed 20 mg PO DAILY 03/09/23 03/09/23 release sertraline 100 mg tablet 100 mg PO BID 03/09/23 03/09/23 trazodone 150 mg tablet 75 mg PO QPM 03/09/23 03/09/23 Previous Rx's ?Medication ?Instructions ?Recorded divalproex 125 mg capsule,delayed 1,000 mg (8 x 125 mg) PO BID #960 09/13/23 release sprinkle (Depakote caps Sprinkles) trazodone 100 mg tablet 100 mg PO BEDTIME #60 tabs 09/13/23 Allergies Allergy/AdvReac Type Severity Reaction Status Date / Time tamoxifen [TAMOXIFEN] Allergy Unknown OUT OF Verified 05/23/24 17:59 SORTS lotions Allergy Unknown Uncoded 05/23/24 17:59 Review of Systems 2 Review of Systems: Unable to obtain secondary to dementia Yes all other systems are reviewed and are negative [facility] Past Medical History Attestation statement: The following information was validated with the patient. Medical History Epileptic seizure H/O hemorrhoids GERD (gastroesophageal reflux disease) Arthritis Lymphocytic colitis Loose stools Mood disorder Anxiety Breast cancer Surgical History History of partial hysterectomy Hx of left mastectomy Hx of cataract extraction H/O colonoscopy Social History Social History Alcohol intake: never Patient Tobacco Use Status: Never used Tobacco Smoked in Last 30 Days: No Use of substances other than those prescribed or required for medical reasons: No Advance Directives: Yes Advance Directives on File: Yes Advance Directives Date on File: 03/10/23 Do you have a plan to hurt others: No Plan Physical Exam 2 Vital Signs: Vital Signs: Last Vital Signs Temp 96.4 F L 05/23/24 19:58 Pulse 67 05/23/24 19:58 Resp 20 05/23/24 19:58 BP 146/60 H 05/23/24 19:58 Pulse Ox 100 05/23/24 19:58 O2 Del Method Room Air 05/23/24 19:58 BMI result Body Mass Index 21.8 Appearance: Alert. Oriented X3. No acute distress. Eyes: PERRLA, No Nystagmus ENT: Pharynx normal. Oral Mucosa moist Neck: Normal inspection. Neck supple. CVS: Normal heart rate and rhythm. Pulses normal. Respiratory: No respiratory distress. Equal air entry bilateral, no wheezing/rales/rhonchi Abdomen: Soft and nontender. Bowel sounds are present, no mass palpable, no CVA tenderness Skin: Skin warm and dry. Normal skin color. Normal skin turgor. Extremities: No lower extremity edema. No calf tenderness diffuse tenderness right gluteal area and lumbar spine Neuro: Oriented X 3. Right sided residual weakness No sensory deficit.No cerebellar signs , cranial nerves II-XII intact Const: Other: Alert, no sign of head trauma on exam Orientation/consciousness: oriented to person Neck: Neck: Yes full ROM Resp: Other: Nonlabored respiration Cardio: Other: Normal peripheral perfusion Neuro: General: oriented to person Extrem: Other: Moves all extremities independently, ambulating on her own without assistance, no deformity noted over any of the extremities Psych: Other: Cooperative Medical Decision Making Medical Decision Making MDM Narrative: 68-year-old female with a history of dementia who was now nonverbal as a result of the disease process, seizure disorder, GERD, lymphocytic colitis, mood disorder, anxiety, breast cancer presents after unwitnessed fall at [facility]. Patient was in the bathroom when she fell. A staff member was outside the door, they helped her up, the patient completed using the restroom, she then walked back to her room. Unclear if she struck her head. Patient keeps touching her forehead. Problem: Dementia, seizure disorder , psychiatric illness History: Per [facility] staff I have considered the following differential diagnoses: Fracture, dislocation, intracranial hemorrhage, cervical spine injury Plan: Given the fall was unwitnessed, I will be scanning the patient's head and neck, she is not reliable with her underlying dementia and psychiatric illness. I have low suspicion for fracture or dislocation given the fact the patient has been ambulatory since the incident, she is moving all extremities independently moving around the bed transferring on her own, no indication for x-rays at this time. I will screen basic labs in the event that she has sustained an acute intracranial or cervical spine injury that requires intervention. I have independently reviewed the following tests: Labs: No leukocytosis, not anemic, no electrolyte abnormality noted CT brain/cervical spine: CT/CT cervical spine wo IV con IMPRESSION: No CT evidence of acute intracranial hemorrhage or edematous territorial infarction.. No CT evidence of acute cervical spine fracture or traumatic subluxation. Lab Data 05/23/24 18:43 05/23/24 18:43 Labs: Lab Results 05/23/24 Range/Units 18:43 WBC 4.6 L (4.8-10.8) X10*3/uL RBC 3.57 L (4.20-5.50) X10*6/uL Hgb 11.8 L (12.0-16.0) g/dl Hct 33.6 L (37.0-47.0) % MCV 94.1 (80.0-98.0) fL MCH 33.1 H (27.0-33.0) pg MCHC 35.1 H (31.0-35.0) g/dl RDW 11.5 (11.0-16.0) % Plt Count 164 (160-400) X10*3/uL MPV 11.7 (9.4-12.3) fL Immature Gran % (Auto) 0.4 (0.0-0.4) % Neut % (Auto) 49.4 (45-73) % Lymph % (Auto) 33.9 (20-40) % [place] % (Auto) 13.0 H (2-11) % Eos % (Auto) 2.0 (0-4) % Baso % (Auto) 1.3 (0-2) % Lymph # (Auto) 1.6 (1.2-4.9) X10*3/uL [place] # (Auto) 0.6 (0.1-1.2) X10*3/uL Eos # (Auto) 0.1 (0.0-0.4) X10*3/uL Baso # (Auto) 0.1 (0.0-0.2) X10*3/uL Abs Immat Gran (auto) 0.02 (0.00-0.03) X10*3/uL Absolute Neuts (auto) 2.3 (2.0-8.3) x10*3/uL Absolute Nucleated RBC 0.000 (0.0-0.012) X10*3/uL Nucleated RBC % (auto) 0.0 (0.0-0.2) /100WBC Sodium 131 L (135-145) mmol/L Potassium 4.2 (3.3-5.1) mmol/L Chloride 96 (96-108) mmol/L Carbon Dioxide 28 (22-29) mmol/L Anion Gap 11 L (12-20) BUN 10 (9-16) mg/dL Creatinine 0.62 (0.5-1.4) mg/dL Estim Creat Clear Calc 88.7 Estimated GFR > 60 Random Glucose 92 (60-115) mg/dL Calcium 8.8 (8.4-10.2) mg/dL Magnesium 2.3 (1.6-2.6) mg/dL Discharge Plan Discharge Clinical Impression: Fall at home Patient Disposition: Home, Self-Care Instructions: Fall Prevention for Older Adults (ED) Additional Instructions: Screening labs were obtained they were normal. Imaging of the patient's brain and cervical spine were obtained given the fall was unwitnessed, there was no acute abnormality. There was a staff member at bedside, who verbalized that the research kennel supervisor at the [facility] wanted ?x-rays because she has osteoporosis ?. The patient has been ambulatory since the fall pre arrival to the ER, she has been ambulatory here in the emergency department. X-rays are not indicated, there was no suspicion for fracture or dislocation of any of her extremities at this time. Furthermore, if an individual has osteoporosis, a bone scan as an outpatient would be appropriate to assess her bone density. You can call to make an appointment with the primary care provider. Prescriptions: No Action acetaminophen 325 mg tablet PO loperamide 2 mg capsule PO sertraline 100 mg tablet 100 mg PO BID clonazepam 1 mg tablet 1 mg PO BID PRN (Reason: unknown) bacitracin 500 unit/gram ointment topical BID magnesium hydroxide [Milk of Magnesia] 400 mg/5 mL suspension PO trazodone 150 mg tablet 75 mg PO QPM nystatin 100,000 unit/gram cream topical omeprazole 20 mg capsule,delayed release(DR/EC) 20 mg PO DAILY fluticasone propionate 50 mcg/actuation spray,suspension intranasal divalproex [Depakote Sprinkles] 125 mg capsule, delayed rel sprinkle 625 mg PO BID loratadine 10 mg tablet 10 mg PO DAILY multivitamin with folic acid [Thera] 400 mcg tablet 1 tab PO DAILY divalproex [Depakote Sprinkles] 125 mg capsule, delayed rel sprinkle 1,000 mg PO BID Qty: 960 0RF trazodone 100 mg tablet 100 mg PO BEDTIME Qty: 60 0RF Print Language: Turkish
--- OUTSIDE RECORDS SUMMARY | 2024-05-23 18:57 | XMS_ITS ---
Author Organization [facility] Address [address] [place] [address] Care Team Providers Care Civil Cadd Technician Name Role Phone Stacy JARA, Gina Primary Care Provider Unavailab Ajay Feliciano Jr Unavailable [phone] Encounters Encounter Location Date Provider Diagnosis [facility] [address] [place] [address] 03/16/2024 Ajay Guaman Jr PLAN OF TREATMENT No Information
--- OUTSIDE RECORDS SUMMARY | 2024-05-23 18:58 | XMS_ITS ---
Author Organization [facility] Address [address] [place] [address] Care Team Providers Care Wire Temperer Name Role Phone Stacy JARA, Gina Primary Care Provider Unavailab Ajay Feliciano Jr Unavailable REASON FOR VISIT screening,hx polyps PROBLEMS Problem Type ICD Code Onset Dates Problem Status W/U Status Risk SNOMED Code Notes Problem Personal history of colonic polyps (Z86.010) Active confirmed History of polyp of colon (situation) ([id number]) Encounters Encounter Location Date Provider Diagnosis [facility] [address] [place] [phone] 01/12/2024 Ajay Guaman Jr Colon cancer screening Z12.11 and Personal history of colonic polyps Z86.010 ASSESSMENTS Encounter Date Diagnosis Assessment Notes Treatment Notes Treatment Clinical Notes 01/12/2024 Colon cancer screening (ICD-10 - Z12.11) 01/12/2024 Personal history of colonic polyps (ICD-10 - Z86.010) PLAN OF TREATMENT No Information
--- OUTSIDE RECORDS SUMMARY | 2024-05-23 18:58 | XMS_ITS ---
Author Organization [facility] Address [address] [place] [address] Care Team Providers Care Applied Statistician Name Role Phone Stcay JARA, Gina Primary Care Provider UnavailAjay Weiner Jr Unavailable ALLERGIES Allergen (clinical drug ingredient) Drug/Non Drug Allergy documented on EMR Reaction Allergy Type Onset Date Status tamoxifen Tamoxifen Unknown Drug Allergy Active REASON FOR VISIT Patient presents today for continued GI care MEDICATIONS Medication SIG (Take, Route, Frequency, Duration) Notes Start Date End Date Status Milk of Magnesia 2400 MG/30ML 5 mL at least 4 hours between doses as needed Orally Four times a day Active Senna 8.6 MG 2 tablets at bedtime as needed Orally Once a day for 30 day(s) Active Denta 5000 Plus 1.1 % as directed Dental Active Docusate Sodium 100 MG 1 capsule as need ed Orally Once a day for 30 day(s) Active Calcium + D 500-1000-40 MG-UNT-MCG as directed Orally Active clonazePAM 1 MG Oral for 30 Ac tive Nystatin 762018 UNIT/GM External for 14 Active GNP Milk of Magnesia 1200 MG/15ML Oral for 24 Active Loperamide HCl 2 MG 1 capsule as needed for diarrhea daily for 30 days 03/11/2023 Active Bacitracin 500 UNIT/GM External for 7 Active Omeprazole 20 MG Oral for 30 A ctive Thera - Oral for 30 Active Acetaminophen 325 MG Oral for 30 Active Divalproex Sodium 125 MG 5 capsules Oral Twice a day Active traZODone HCl 50 MG 1/2 tablet Oral at bedtime Active Sertraline HCl 100 MG 2 tabs Oral Once a day Active Loratadine 10 MG Oral for 30 A ctive guaiFENesin 100 MG/5ML 10 mL as needed O rally every 4 hrs for cough Active Fluticasone Propionate 50 MCG/ACT Nasal for 30 Active Preparation H Hydrocortisone Active SOCIAL HISTORY Tobacco Use: Social History [...] W/U Status Risk SNOMED Code Notes Problem Chronic constipation (K59.09) Active confirmed [id number] Problem Personal history of colonic polyps (Z86.0100) Active confirmed [id number] VITAL SIGNS BMI 21.20 kg/m2 03/16/2024 Blood pressure systolic 000 mm Hg 03/16/20 24 Blood pressure diastolic 00 mm Hg 024 Height 68 in 03/16/2024 Temperature 97.9 degrees Fahrenheit 03/16/20 24 Weight 139 lb 7 oz lbs 03/16/2024 Encounters Encounter Location Date Provider Diagnosis [facility] [address] [place] [address] 03/16/2024 Ajay Guaman Jr Chronic constipation K59.09 and Personal history of colonic polyps Z86.0100 ASSESSMENTS Encounter Date Diagnosis Assessment Notes Treatment Notes Treatment Clinical Notes 03/16/2024 Chronic constipation (ICD-10 - K59.09) Constipation - self-care material was printed 03/16/2024 Personal history of colonic polyps (ICD-10 - Z86.0100) PLAN OF TREATMENT Treatment Notes Assessment Notes Chronic constipation Constipation - self -care material was printed Next Appt Details Follow Up: 3 years, Reason:
--- OUTSIDE RECORDS SUMMARY | 2024-05-23 18:58 | XMS_ITS | Patient Health Record ---
Author Organization [facility] Address [address] [place] [address] Care Team Providers Care Radio Frequency Technician Name Role Phone Stacy JARA Gina Primary Care Provider Ajay Zarate Jr Unavailable [phone] ALLERGIES Allergen (clinical drug ingredient) Drug/Non Drug Allergy documented on EMR Reaction Allergy Type Onset Date Status tamoxifen Tamoxifen Unknown Drug Allergy Active REASON FOR REFERRAL No Information MEDICATIONS Medication SIG (Take, Route, Frequency, Duration) Notes Start Date End Date Status Sertraline HCl 100 MG 2 tabs Oral Once a day Active Loratadine 10 MG Oral for 30 A ctive clonazePAM 1 MG Oral for 30 Ac tive Milk of Magnesia 2400 MG/30ML 5 mL at least 4 hours between doses as needed Orally Four times a day Active Omeprazole 20 MG Oral for 30 A ctive guaiFENesin 100 MG/5ML 10 mL as needed O rally every 4 hrs for cough Active Nystatin 822744 UNIT/GM External for 14 Active Senna 8.6 MG 2 tablets at bedtime as needed Orally Once a day for 30 day(s) Active GNP Milk of Magnesia 1200 MG/15ML Oral for 24 Active Fluticasone Propionate 50 MCG/ACT Nasal for 30 Active Loperamide HCl 2 MG 1 capsule as needed for diarrhea daily for 30 days 03/11/2023 Active Preparation H Hydrocortisone Active Bacitracin 500 UNIT/GM External for 7 Active Denta 5000 Plus 1.1 % as directed Dental Active Thera - Oral for 30 Active Acetaminophen 325 MG Oral for 30 Active Docusate Sodium 100 MG 1 capsule as need ed Orally Once a day for 30 day(s) Active Divalproex Sodium 125 MG 5 capsules Oral Twice a day Active Calcium + D 500-1000-40 MG-UNT-MCG as directed Orally Active traZODone HCl 50 MG 1/2 tablet Oral at bedtime Active IMMUNIZATIONS Vaccine Route Administration Date Status [...] Notes Problem Lymphocytic colitis (K52.832) Active confirmed 7968103786 Problem Colon cancer screening (Z12.11) Active confirmed 199521941 Problem History of colon polyps (Z86.010) Active confirmed 769279951 Problem Personal history of colonic polyps (Z86.010) Active confirmed History of polyp of colon (situation) (203600788) Problem Chronic constipation (K59.09) Active confirmed 307393859 Problem Personal history of colonic polyps (Z86.0100) Active confirmed 533618810 VITAL SIGNS Temperature 97.9 degrees Fahrenheit 03/16/2024 Blood pressure diastolic 00 mm Hg 03/16/2024 Height 68 in 03/16/2024 Blood pressure systolic 000 mm Hg 03/16/2024 Weight 139 lb 7 oz lbs 03/16/2024 BMI 21.20 kg/m2 03/16/2024 Encounters Encounter Location Date Provider Diagnosis [facility] [address] [place] [id number] 01/12/2024 Ajay Guaman Jr Colon cancer screening Z12.11 and Personal history of colonic polyps Z86.010 [facility] [address] [place] [phone] 03/16/2024 Ajay Guaman Jr Chronic constipation K59.09 and Personal history of colonic polyps Z86.0100 [facility] [address] [place] [phone] 12/16/2023 Ajay Guaman Jr Lymphocytic colitis K52.832 ; Colon cancer screening Z12.11 and History of colon polyps Z86.010 [facility] [address] [place] [phone] 03/16/2024 Ajay Guaman Jr ASSESSMENTS Encounter Date Diagnosis Assessment Notes Treatment Notes Treatment Clinical Notes 01/12/2024 Colon cancer screening (ICD-10 - Z12.11) 01/12/2024 Personal history of colonic polyps (ICD-10 - Z86.010) 03/16/2024 Chronic constipation (ICD-10 - K59.09) Constipation - self-care material was printed 03/16/2024 Personal history of colonic polyps (ICD-10 - Z86.0100) 12/16/2023 Colon cancer screening (ICD-10 - Z12.11) 12/16/2023 Lymphocytic colitis (ICD-10 - K52.832) 12/16/2023 History of colon polyps (ICD-10 - Z86.010) PLAN OF TREATMENT Future Test Test Name Order Date COLONOSCOPY 01/26/2023 COLONOSCOPY 12/16/2023 Insurance Providers Payer Name Payer Address Payer Phone Subscriber Number Group Number Insured Name Patient Relationship to Insured Coverage Start Date Coverage End Date MEDICARE OF [place] [address] [place] [address] [phone] [id number] ESTRELLITA NICHOLS Self - patient is the insured [facility] [employer] [employer] [address] [place] [address] [id number] ESTRELLITA NICHOLS Self - patient is the insured MEDICAL (GENERAL) HISTORY Medical History History ICD Code Colonoscopy 01/29, no polyps, three-year followup breast cancer arthritis gerd hemorrhoids hypothyroidism bipolar disorder Seizure disorder Intellectual disability/chronic static e ncephalopathy Surgical History Surgery Date(Month/Year) cateract surgery left mastectomy partial hysterectomy Hospitalization History Reason Date(Month/Year) seizures
[2024-05-23 19:02] LABS: Anion Gap 11 (12-20); Blood Urea Nitrogen 10 mg/dL (9-16); Calcium 8.8 mg/dL (8.4-10.2); Carbon Dioxide 28 mmol/L (22-29); Chloride 96 mmol/L (96-108); Creatinine Clr Calc Pharmacy 88.7; Estimated Glomerular Filt Rate > 60; Glucose Random 92 mg/dL (60-115); Magnesium 2.3 mg/dL (1.6-2.6); Potassium 4.2 mmol/L (3.3-5.1); Sodium 131 mmol/L (135-145)
--- NOTE | 2024-05-23 19:24 | PC.NURSE ---
pt self removed C-collar, senior living staff at bedside
[2024-05-23 19:58] VITALS: BP 146/60; PULSE 67; RESP 20; TEMP 35.8; O2SAT 100
--- NOTE | 2024-05-23 20:15 | MHC.EDTECH ---
pt ambulating with a steady gait to and from bathroom with staff child psychometrist
--- NOTE | 2024-05-23 21:35 | PC.NURSE ---
pt ambulated independently to bathroom
[2024-05-23 22:17] VITALS: BP 146/60; PULSE 67; RESP 20; TEMP 35.8; O2SAT 100
== END 2024-05-23 22:25 | disposition home or self-care (01) ==
PROVIDERS: Physician Assistant Medical; Emergency Provider Internal Medicine
DX: S09.90XA Unspecified injury of head, initial encounter (principal); R51.9 Headache, unspecified; M54.2 Cervicalgia; W18.30XA Fall on same level, unspecified, initial encounter; Y93.89 Activity, other specified; Y92.89 Other specified places as the place of occurrence of the external cause; Y99.8 Other external cause status; Z79.899 Other long term (current) drug therapy
CPT/HCPCS: 36415; 70450; 72125; 80048; 83735; 85025; 99284

== ENCOUNTER 2024-12-08 21:09 | Emergency (ER) | payer MEDICARE, MEDICAID, SELFPAY ==
[2024-12-08 21:15] VITALS: BP 123/81; PULSE 66; RESP 16; TEMP 36.2; O2SAT 97; BMI 22.2
--- NOTE | 2024-12-08 21:56 | ED_ITS ---
HPI - Skin/Abscess/Foreign Bdy General Chief complaint: Skin/Abscess/Foreign Body Stated complaint: inner right thigh bruise Time Seen by Provider: 12/08/24 21:50 Source: patient Mode of arrival: ambulatory Limitations: no limitations History of Present Illness ED Provider: Dr. Pearl Hays HPI narrative: patient comes to the emergency room via private vehicle and staff from the patient's nursing home. Patient is not verbal at baseline. According to the staff who is at bedside with the patient, earlier today they noticed that the patient has bruising to the inner thigh. The nursing home staff states that per state mandate, they needed to bring the patient to the emergency room to get checked out. Related Data Home Medications ?Medication ?Instructions ?Recorded ?Confirmed acetaminophen 325 mg tablet mg PO 03/09/23 bacitracin 500 unit/gram topical topical BID 03/09/23 ointment clonazepam 1 mg tablet 1 mg PO BID PRN unknown 07/3103/09/23 divalproex 125 mg capsule,delayed 625 mg PO BID 03/09/23 release sprinkle (Depakote Sprinkles) fluticasone propionate 50 spray intranasal 03/09/23 mcg/actuation nasal spray,suspension loperamide 2 mg capsule mg PO 03/09/23 loratadine 10 mg tablet 10 mg PO DAILY 03/09/2307/31 magnesium hydroxide 400 mg/5 mL ml PO 03/09/23 oral suspension (Milk of Magnesia) multivitamin with folic acid 400 1 tab PO DAILY 03/09/23 mcg tablet (Thera) nystatin 100,000 unit/gram topical topical 03/09/23 cream omeprazole 20 mg capsule,delayed 20 mg PO DAILY 03/09/23 release sertraline 100 mg tablet 100 mg PO BID 03/09/2303/09 trazodone 150 mg tablet 75 mg PO QPM 03/09/23 Previous Rx's ?Medication ?Instructions ?Recorded divalproex 125 mg capsule,delayed 1,000 mg (8 x 125 mg ) PO BID #960 09/13/23 release sprinkle (Depakote caps Sprinkles) trazodone 100 mg tablet 100 mg PO BEDTIME #60 tabs 0 09/13/23 Allergies Allergy/AdvReac Type Severity Reaction Status Date / Time tamoxifen (TAMOXIFEN) Allergy Unknown OUT OF Verified 12/08/24 21:21 SORTS lotions Allergy Unknown Uncoded 12/08/24 21:21 Review of Systems 2 Review of Systems: Yes Other ( patient is nonverbal at baseline) COUNTS INCLUDE 234 BEDS AT THE [facility] Past Medical History Medical History Epileptic seizure H/O hemorrhoids GERD (gastroesophageal reflux disease) Arthritis Lymphocytic colitis Loose stools Mood disorder Anxiety Breast cancer Surgical History History of partial hysterectomy Hx of left mastectomy Hx of cataract extraction H/O colonoscopy Social History Social History Alcohol intake: never Patient Tobacco Use Status: Never used Tobacco Advance Directives: Yes Advance Directives on File: Yes Advance Directives Date on File: 03/10/23 Do you have a plan to hurt others: No Plan Physical Exam 2 Vital Signs: Vital Signs: Last Vital Signs Temp 97.3 F 12/08/24 22:00 Pulse 68 12/08/24 22:00 Resp 16 12/08/24 22:00 BP 131/60 12/08/24 22:00 Pulse Ox 98 12/08/24 22:00 O2 Del Method Room Air 12/08/24 22:00 BMI result Body Mass Index 22.2 Const: Other: Appearance: Alert. awake, no acute distress Eyes: Pupils equal, round and reactive to light. ENT: Pharynx normal. Neck: Normal inspection. Neck supple. No lymph nodes noted. No crepitus CVS: Normal heart rate and rhythm. Pulses normal. Normal S1 and S2 Respiratory: No respiratory distress. Breath sounds normal. No Wheezing. No rales Abdomen: Soft and nontender. No rigidity. No distention. Skin: Skin warm and dry. Normal skin color. see extremities below Extremities: No lower extremity edema. No Lacerations. patient has ecchymosis on the inner aspect of the right thigh, seems to be a combination of plaques and petechial rash, no obvious sign of trauma. Also, patient has multiple ecchymosis in her shins Neuro: moves all extremities Psych: calm, trying to be cooperative Course Course Course Narrative: overall, based on patient's physical exam, patient's seems to bruise easily. There are no obvious signs of physical abuse I discussed with the patient's assistant professor in family studies/nursing home staff that we will order basic lab work including coagulation labs to ensure that she does not have a hematologic disorder that may be contributing to the ecchymosis Medical Decision Making Medical Decision Making [facility] Narrative: my interpretation of labs: No significant abnormality in patient's hematology, patient's platelet is slightly reduced 149 , patient's coagulation times are pretty much normal. Chemistry shows a sodium of 131 which patient has had before. Patient does not have any obvious acute symptoms. Hyponatremia likely secondary to patient's psychiatric medications. Overall, patient does not have any signs that would indicate that patient was physically abused. Lab Data [facility] Lab Attestation statement: I reviewed the patient's lab results. 12/08/24 22:38 12/08/24 22:38 Labs: Lab Results 12/08/24 Range/Units 22:38 WBC 4.8 (4.8-10.8) X10*3/uL RBC 3.16 L (4.20-5.50) X10*6/uL Hgb 10.6 L (12.0-16.0) g/dl Hct 29.6 L (37.0-47.0) % MCV 93.7 (80.0-98.0) fL MCH 33.5 H (27.0-33.0) pg MCHC 35.8 H (31.0-35.0) g/dl RDW 11.7 (11.0-16.0) % Plt Count 149 L (160-400) X10*3/uL MPV 11.5 (9.4-12.3) fL Immature Gran % (Auto) 0.2 (0.0-0.4) % Neut % (Auto) 38.9 L (45-73) % Lymph % (Auto) 42.5 H (20-40) % Desha % (Auto) 14.1 H (2-11) % Eos % (Auto) 3.3 (0-4) % Baso % (Auto) 1.0 (0-2) % Lymph # (Auto) 2.1 (1.2-4.9) X10*3/uL Desha # (Auto) 0.7 (0.1-1.2) X10*3/uL Eos # (Auto) 0.2 (0.0-0.4) X10*3/uL Baso # (Auto) 0.1 (0.0-0.2) X10*3/uL Abs Immat Gran (auto) 0.01 (0.00-0.03) X10*3/uL Absolute Neuts (auto) 1.9 L (2.0-8.3) x10*3/uL Absolute Nucleated RBC 0.000 (0.0-0.012) X10*3/uL Nucleated RBC % (auto) 0.0 (0.0-0.2) /100WBC PT 12.5 H (10.9-12.4) SEC INR 1.1 (0.9-1.1) APTT 32.9 (26.0-36.8) SEC Sodium 131 L (135-145) mmol/L Potassium 4.0 (3.3-5.1) mmol/L Chloride 96 (96-108) mmol/L Carbon Dioxide 31 H (22-29) mmol/L Anion Gap 8 L (12-20) BUN 14 (9-16) mg/dL Creatinine 0.52 (0.5-1.4) mg/dL Estim Creat Clear Calc 96.9 Estimated GFR > 60 Random Glucose 90 (60-115) mg/dL Calcium 8.5 (8.4-10.2) mg/dL Discharge Plan Discharge Clinical Impression: Ecchymosis Patient Disposition: Home, Self-Care Instructions: Ecchymosis (ED) Additional Instructions: Please follow-up with your primary care physician tomorrow. If you have any worsening or new symptoms, please return to the emergency room or call 911 Prescriptions: No Action acetaminophen 325 mg tablet PO loperamide 2 mg capsule PO sertraline 100 mg tablet 100 mg PO BID clonazepam 1 mg tablet 1 mg PO BID PRN (Reason: unknown) bacitracin 500 unit/gram ointment topical BID magnesium hydroxide [Milk of Magnesia] 400 mg/5 mL suspension PO trazodone 150 mg tablet 75 mg PO QPM nystatin 100,000 unit/gram cream topical omeprazole 20 mg capsule,delayed release(DR/EC) 20 mg PO DAILY fluticasone propionate 50 mcg/actuation spray,suspension intranasal divalproex [Depakote Sprinkles] 125 mg capsule, delayed rel sprinkle 625 mg PO BID loratadine 10 mg tablet 10 mg PO DAILY multivitamin with folic acid [Thera] 400 mcg tablet 1 tab PO DAILY divalproex [Depakote Sprinkles] 125 mg capsule, delayed rel sprinkle 1,000 mg PO BID Qty: 960 0RF trazodone 100 mg tablet 100 mg PO BEDTIME Qty: 60 0RF Print Language: Croatian
[2024-12-08 22:00] VITALS: BP 131/60; PULSE 68; RESP 16; TEMP 36.3; O2SAT 98
[2024-12-08 22:42] LABS: MANUAL DIFF FLAG NO
[2024-12-08 22:43] LABS: Hematocrit 29.6 % (37.0-47.0); Hemoglobin 10.6 g/dl (12.0-16.0); Imm Gran Abs Auto 0.01 X10*3/uL (0.00-0.03); Imm Gran Pct Auto 0.2 % (0.0-0.4); Lymphocytes Absolute Auto 2.1 X10*3/uL (1.2-4.9); Mean Corpuscular HGB Conc 35.8 g/dl (31.0-35.0); Mean Corpuscular Hemoglobin 33.5 pg (27.0-33.0); Mean Corpuscular Volume 93.7 fL (80.0-98.0); NRBC Abs Auto 0.000 X10*3/uL (0.0-0.012); NRBC Pct Auto 0.0 /100WBC (0.0-0.2); Platelet Count 149 X10*3/uL (160-400); Red Blood Count 3.16 X10*6/uL (4.20-5.50); White Blood Count 4.8 X10*3/uL (4.8-10.8)
[2024-12-08 22:48] LABS: INTERNATIONAL NORM RATIO 1.1 (0.9-1.1); Prothrombin Time 12.5 SEC (10.9-12.4)
[2024-12-08 22:51] LABS: Partial Thromboplastin Time 32.9 SEC (26.0-36.8)
[2024-12-08 22:55] LABS: Anion Gap 8 (12-20); Blood Urea Nitrogen 14 mg/dL (9-16); Calcium 8.5 mg/dL (8.4-10.2); Carbon Dioxide 31 mmol/L (22-29); Chloride 96 mmol/L (96-108); Creatinine Clr Calc Pharmacy 96.9; Estimated Glomerular Filt Rate > 60; Potassium 4.0 mmol/L (3.3-5.1); Sodium 131 mmol/L (135-145)
[2024-12-08 23:16] VITALS: BP 131/60; PULSE 68; RESP 16; TEMP 36.3; O2SAT 98
== END 2024-12-08 23:16 | disposition home or self-care (01) ==
PROVIDERS: Emergency Provider Emergency Medicine; PCP Family Medicine
DX: S70.11XA Contusion of right thigh, initial encounter (principal); X58.XXXA Exposure to other specified factors, initial encounter; Y93.9 Activity, unspecified; Y92.9 Unspecified place or not applicable; Y99.8 Other external cause status; Z79.899 Other long term (current) drug therapy
CPT/HCPCS: 36415; 80048; 85025; 85610; 85730; 99283

== ENCOUNTER 2025-01-13 11:22 | Outpatient (REF) | payer MEDICARE, MEDICAID, SELFPAY ==
--- NOTE | ~2025-01-13 | US_ITS ---
CLINICAL HISTORY: UTI US renal with Color Doppler Comparison: None Findings: Right kidney normal size and echotexture, 11.5 cm length. No hydronephrosis calculus or mass. Normal color flow. Left kidney normal size and echotexture, 11.1 cm length. Renal cortical cyst with smalldependent calcification cyst measuring 1.3 x 0.8 x 1.1 cm. Normal color flow. No hydronephrosis. Impression: 1. Renal cortical cyst on the left with a probable dependent calculus may represent a caliceal diverticulum with stone. CT urogram may be of further diagnostic value. 2. Cholelithiasis. This document has been electronically signed by: Edward Natarajan MD on 01/13/2025 19:08:39
== END 2025-01-13 11:23 | disposition home or self-care (01) ==
LOC: HO.US 11:22
PROVIDERS: PCP Family Medicine; Visit Provider Urology
DX: N39.0 Urinary tract infection, site not specified (principal)
CPT/HCPCS: 76775

== ENCOUNTER 2025-04-05 15:26 | Emergency (ER) | payer MEDICARE, MEDICAID, SELFPAY ==
--- NOTE | ~2025-04-05 | CT_ITS ---
EXAMINATION: CT CERVICAL SPINE WITHOUT CONTRAST CLINICAL INFORMATION: Trauma COMPARISON: May 23, 2024 TECHNIQUE: Axial imaging was performed from the base of the skull through T2 without IV contrast. Coronal and sagittal reformatted images were generated from the original axial data set. ALARA: The examination used one or more of the following radiation dose reduction techniques: Automated exposure control, iterative reconstruction, and/or adjustment of mA and/or KV. FINDINGS: There is subtle retrolisthesis and mild disc space narrowing involving C3-4. There is stable moderate disc space narrowing at C6-7 Facet osteoarthritis is mild to moderate, more advanced on the left side No fractures are evident. There is no prevertebral soft tissue swelling. CT/CT cervical spine wo IV con IMPRESSION: Stable degenerative changes. No acute abnormality. Electronically signed by: Selvin Simmons MD 04/05/2025 04:12 PM EDT
--- NOTE | ~2025-04-05 | CT_ITS ---
EXAMINATION: CT HEAD WITHOUT CONTRAST CLINICAL INFORMATION: Head trauma COMPARISON: 05/23/2024 TECHNIQUE: Contiguous axial imaging was performed from the skull base to vertex without intravenous administration of contrast. This CT examination was performed using dose optimization techniques as appropriate, variously including the following: *Automated exposure control *Adjustment of mA and/or kV according to patient size (this includes techniques or standardized protocols for targeted exams where dose is matched to indication/reason for exam; i.e. extremities or head) *Use of iterative reconstruction technique FINDINGS: There is moderate atrophy, more pronounced in the frontal and temporal lobes. There is no acute ischemic change. There is no intracranial hemorrhage. There is no mass-effect or midline shift. Basal cisterns and ventricles are within normal limits for age/cerebral volume. Orbits are symmetrical and unremarkable. Paranasal sinuses and mastoid air cells are pneumatized. There are no bony abnormalities. CT/CT head/brain wo IV con IMPRESSION: No acute intracranial abnormality. Generalized atrophy is more pronounced in the frontal and temporal lobes. Electronically signed by: Selvin Simmons MD 04/05/2025 04:17 PM EDT
[2025-04-05 15:33] VITALS: BP 131/96; PULSE 70; RESP 18; TEMP 36.4; O2SAT 99; BMI 24.0
--- NOTE | 2025-04-05 15:35 | ED.GENADULT ---
HPI - General Adult General Chief complaint: Head Injury Stated complaint: hit her head in the van Time Seen by Provider: 04/05/25 16:30 Source: patient Mode of arrival: ambulatory Limitations: no limitations History of Present Illness ED Provider: Dr. Pate HPI narrative: This is a 69-year-old female history of intellectual disability nonverbal at baseline presented hospital today [facility]. Patient was found down in the back of the van. Unsure of how patient had fell. It was suspected that patient may have unbuckled herself. They noticed some redness on her right ear therefore patient presents to ER for evaluation. No sign of blood thinners. No other injuries anywhere else. Related Data Home Medications ?Medication ?Instructions ?Recorded ?Confirmed acetaminophen 325 mg tablet mg PO 03/09/23 bacitracin 500 unit/gram topical topical BID 03/09/23 ointment clonazepam 1 mg tablet 1 mg PO BID PRN unknown 03/09/23 03/09/23 divalproex 125 mg capsule,delayed 625 mg PO BID 03/09/23 03/09/23 release sprinkle (Depakote Sprinkles) fluticasone propionate 50 spray intranasal 03/09/23 mcg/actuation nasal spray,suspension loperamide 2 mg capsule mg PO 03/09/23 loratadine 10 mg tablet 10 mg PO DAILY 03/09/23 03/09/23 magnesium hydroxide 400 mg/5 mL ml PO 03/09/23 oral suspension (Milk of Magnesia) multivitamin with folic acid 400 1 tab PO DAILY 03/09/23 03/09/23 mcg tablet (Thera) nystatin 100,000 unit/gram topical topical 03/09/23 cream omeprazole 20 mg capsule,delayed 20 mg PO DAILY 03/09/23 03/09/23 release sertraline 100 mg tablet 100 mg PO BID 03/09/23 03/09/23 trazodone 150 mg tablet 75 mg PO QPM 03/09/23 03/09/23 Previous Rx's ?Medication ?Instructions ?Recorded divalproex 125 mg capsule,delayed 1,000 mg (8 x 125 mg) PO BID #960 09/13/23 release sprinkle (Depakote caps Sprinkles) trazodone 100 mg tablet 100 mg PO BEDTIME #60 tabs 09/13/23 Allergies Allergy/AdvReac Type Severity Reaction Status Date / Time tamoxifen (TAMOXIFEN) Allergy Unknown OUT OF Verified 04/05/25 15:38 SORTS lotions Allergy Unknown Uncoded 12/08/24 21:21 Review of Systems Review of Systems: Pertinent review of systems as mentioned in HPI. All other system otherwise negative. [facility] Past Medical History [facility] Narrative: Medical history as mentioned in HPI Medical History Epileptic seizure H/O hemorrhoids GERD (gastroesophageal reflux disease) Arthritis Lymphocytic colitis Loose stools Mood disorder Anxiety Breast cancer Surgical History History of partial hysterectomy Hx of left mastectomy Hx of cataract extraction H/O colonoscopy Social History Social History Alcohol intake: never Patient Tobacco Use Status: Never used Tobacco Advance Directives: Yes Advance Directives on File: Yes Advance Directives Date on File: 03/10/23 Physical Exam ED Exam Exam: General: Pleasant, no distress, interacting appropriately Head: Normacephalic, atraumatic, no laceration Extremities: No obvious deformity Neurological: Awake and alert, no facial droop noted Skin: Warm and dry Psychiatric: Appropriate mood and thoughts Vital Signs: Vital Signs - 24 hr 04/05/25 15:33 04/05/25 17:09 Temperature 97.6 F 97.6 F Pulse Rate 70 70 Respiratory Rate 18 18 Blood Pressure 131/96 H 131/96 H Pulse Oximetry 99 99 Oxygen Delivery Method Room Air Room Air BMI result Body Mass Index 24.0 Medical Decision Making Medical Decision Making [facility] Narrative: 69-year-old female history of intellectual disability presented hospital today after a fall in the wheelchair van. This is a very low mechanism fall. Patient is nonverbal at baseline we will obtain a CT head and CT C-spine. Does not appear to have pain in her chest or abdomen. No obvious deformity. Patient is able to ambulate without any issues. CT head and CT C-spine is negative at this time. Patient will be discharged. Differential Diagnosis Differential Diagnoses: The differential diagnosis associated with the presentation includes Closed head injury, C-spine injury, intracranial head bleed Independent Interpretation I performed an independent interpretation of an: CT Scan Radiology Impression Discussion of test interpretation with radiology: I have reviewed the radiologist's reading. Discharge Plan Discharge Clinical Impression: Closed head injury Qualifiers: Encounter type: initial encounter Qualified Code(s): S09.90XA - Unspecified injury of head, initial encounter Patient Disposition: Home, Self-Care Additional Instructions: No signs of intracranial injury or fracture on CT imaging. Prescriptions: No Action acetaminophen 325 mg tablet PO loperamide 2 mg capsule PO sertraline 100 mg tablet 100 mg PO BID clonazepam 1 mg tablet 1 mg PO BID PRN (Reason: unknown) bacitracin 500 unit/gram ointment topical BID magnesium hydroxide [Milk of Magnesia] 400 mg/5 mL suspension PO trazodone 150 mg tablet 75 mg PO QPM nystatin 100,000 unit/gram cream topical omeprazole 20 mg capsule,delayed release(DR/EC) 20 mg PO DAILY fluticasone propionate 50 mcg/actuation spray,suspension intranasal divalproex [Depakote Sprinkles] 125 mg capsule, delayed rel sprinkle 625 mg PO BID loratadine 10 mg tablet 10 mg PO DAILY multivitamin with folic acid [Thera] 400 mcg tablet 1 tab PO DAILY divalproex [Depakote Sprinkles] 125 mg capsule, delayed rel sprinkle 1,000 mg PO BID Qty: 960 0RF trazodone 100 mg tablet 100 mg PO BEDTIME Qty: 60 0RF Stand Alone Forms: Work/School Release Interventions: ED Discharge Assessment Last Done: 04/05/25 17:09 Discharge Date/Time: 04/05/25 17:09 Print Language: Persian
[2025-04-05 17:09] VITALS: BP 131/96; PULSE 70; RESP 18; TEMP 36.4; O2SAT 99
--- OUTSIDE RECORDS SUMMARY | 2025-04-05 20:14 | XMS_ITS | Data Portability ---
Author Organization [place] - [facility], [facility] Address [address] [place] [address] Care Team Providers Care Valance Cutter Name Role Phone [facility] Primary Care Pro vider Assessment Encounter Date Assessment Date Assessment LastModified by Organization Details LastModified Time 01/20/2024 01/20/2024 I am seeing the patient today under the supervision of Dr Hills who was available but who did not see the patient. [email or web address] Not available 01/20/2024 06:36:33 04/21/2024 04/21/2024 I am seeing the patient today under the supervision of Dr Hills who was available but who did not see the patient. [email or web address] Not available 04/21/2024 10:45:37 08/03/2024 08/03/2024 I am seeing the patient today under the supervision of Dr Hills who was available but who did not see the patient. [email or web address] Not available 08/03/2024 15:15:47 11/07/2024 11/07/2024 I am seeing the patient today under the supervision of Dr Hills who was available but who did not see the patient. [email or web address] Not available 11/07/2024 13:30:26 02/17/2025 02/17/2025 I am seeing the patient today under the supervision of Dr. Valente who was available but who did not see the patient. HPI: Patient is here today for reevaluation of left hip pain. Has been evaluated by my colleague and diagnosed with osteoarthritis of the hip. Here today for intra-articular hip injection. No new injury or symptom changes. Review of systems: As noted patient intake. Physical exam:The patient is well appearing and in no apparent distress. Alert and oriented x3. Gait is antalgic on the left. Examination of the hip reveals no effusion, erythema, or warmth. No point tenderness over the greater trochanter. Forward flexion to 90. External rotation to 60 internal rotation to 0. + impingement, - straight leg raise. Calf soft and nontender. 5/5 strength with hip flexion/extension. Assessment: Osteoarthritis of the left hip Plan: I explained the nature of the diagnosis with the patient and its treatment options both conservative and surgical. Conservative measures were discussed at length including oral antiinflammatories, physical therapy, bracing and injection therapies. Please see the procedure note for further documentation about the injection performed today. Follow-up in 3 months for re-evaluation, sooner if any difficulty. The patient understands and agrees with the plan. They know to call if they have any further questions or concerns regarding their symptoms, or to follow up sooner if needed. Not available 02/17/2025 06:55:27 Plan of Treatment Reminders Order Date Submit Date Provider Last Modified By Organization Details Last Modified Time Details Appointments RECHECK 15 2024 11:00A Deepak Stockton PA-C Not available Not available Not available Lab None recorded . Referral None recorded . Procedures None recorded . Surgeries None recorded . Imaging None recorded . Medication Orders None recorded . Patient TargetsNo targets recorded. Patient InstructionsNo instructions recorded. Reason for Referral None Reported. Problems Name Problem SNOMED Code Status Onset Date Resolution Date Notes Provider Name and Address Organization Details Recorded Time Osteoarthr itis of left hip joint 1658891021541 08 Active 2023 Not Available [facility] 4 10:27:27 Osteoarthr itis of right hip joint 4855871250712 07 Active 2023 YUVAL santillan [place] - [facility] 4 09:13:37 Osteoarthr itis of bilateral hip joints 8812068846334 05 Active 2023 YUVAL santillan [place] - [facility] 4 09:13:38 Problem Notes None recorded. Procedures Surgical History Date Name Laterality Status Provider Name and Address Organization Details Recorded Time 02/17/[facility] Miles Langston PA-C [address], [place], [address], [place] [facility] 02/17/2025 06:54:40 11/07/2024 [facility] Babar Nettles PA-C [address], [place], [address], [facility] 11/07/2024 13:30:42 08/03/2024 [facility] Babar Nettles PA-C [address], [place], [address], [facility] 08/03/2024 15:21:54 04/21/2024 [facility] Babar Nettles PA-C [address], [place], [address], [facility] 04/21/2024 10:45:31 [facility] [address], [place], [address], [facility] 01/20/2024 10:31:27 10/15/2023 [facility] completed Babar Nettles PA-C [address], [place], [address], [facility] 10/15/2023 10:03:04 Imaging Results None recorded. Procedure Notes None recorded. Medical Equipment None Reported. Allergies No known drug allergies Medications Name Sig Start Date Stop Date Status Note LastModified by Organization Details LastModified Time calcium 600 + vitamin d 200 active Not Available Not Available Not Available reguloid 43 % powd active Not Available Not Available Not Available acetaminophe n 325 mg tablet active Not Available Not Available Not Available loperamide 2 mg capsule active Not Available Not Available N ot Available trazodone 50 mg tablet active Not Available Not Available No t Available nystatin 100,000 unit/gram topical ointment active Not Available Not Available Not Available senna 8.6 mg tablet active Not Available Not Available Not Available clonazepam 0.5 mg tablet active Not Available Not Available Not Available sertraline 100 mg tablet active Not Available Not Available Not Available clonazepam 1 mg tablet active Not Available Not Available No t Available bacitracin 500 unit/gram topical ointment active Not Available Not Available Not Available penicillin V potassium 500 mg tablet active Not Available Not Available Not Available Thera 400 mcg tablet active Not Available Not Available N ot Available trazodone 100 mg tablet active Not Available Not Available Not Available trazodone 150 mg tablet active Not Available Not Available Not Available nystatin 100,000 unit/gram topical cream active Not Available Not Available Not Available docusate sodium 100 mg capsule active Not Available Not Available N ot Available omeprazole 20 mg capsule,shayy yed release active Not Available Not Available Not Available magnesium citrate oral solution TAKE 150 MLS BY MOUTH ONCE , MAY REPEAT IN 12 HOURS IF NO BM active Not Available Not Available No t Available bisacodyl 5 mg tablet,delay ed release active Not Available Not Available N ot Available lorazepam 1 mg tablet active Not Available Not Available No t Available ibuprofen 600 mg tablet active Not Available Not Available Not Available polyethylene glycol 3350 17 gram/dose oral powder active Not Available Not Available Not Available fluticasone propionate 50 mcg/actuatio n nasal spray,suspen chuy active Not Available Not Available Not Available divalproex 125 mg capsule,shayy yed release sprinkle active Not Available Not Available Not Available loratadine 10 mg tablet active Not Available Not Available Not Available sodium fluoride 1.1 % dental cream active Not Available Not Available Not Available calcium Calcium 600-5MG- MCG Tablet 2023 active Statu s: 'Curr ent'; Not Available Not Available Not Available HealthyLax 17 gram oral powder packet active Not Available Not Available Not Available Profola 20 mg iron-1,670 mcg DFE tablet active Not Available Not Available Not Available Paxlovid 300 mg (150 mg x 2)-100 mg tablets in a dose pack TAKE 3 TABLETS BY MOUTH TWICE A DAY FOR 5 DAYS 11/07 completed Not Available Not Available Not Available Vitals Date Recorded Body height Body mass index (BMI) Body weight Provider Name and Address Organization Details Last Updated DateTime 08/03/2024 172.72 cm 22.2 kg/m2 92115.49 g RODNEY Larry [facility] 08/03/2024 15:16:15 Date Recorded Body height Body mass index (BMI) Body weight Provider Name and Address Organization Details Last Updated DateTime 11/07/2024 172.72 cm 22.2 kg/m2 95715.49 g [facility] 11/07/2024 13:23:49 Date Recorded Body height Body mass index (BMI) Body weight Provider Name and Address Organization Details Last Updated DateTime 01/20/2024 172.72 cm 22.2 kg/m2 08354.49 g Howard Vargas [facility] 01/20/2024 10:26:08 Date Recorded Body height Body mass index (BMI) Body weight Provider Name and Address Organization Details Last Updated DateTime 02/17/2025 172.72 cm 22.2 kg/m2 72777.49 g EMI Hyanes [facility] 02/17/2025 08:36:33 Date Recorded Body height Body mass index (BMI) Body weight Provider Name and Address Organization Details Last Updated DateTime 04/21/2024 172.72 cm 22.2 kg/m2 17143.49 g Howard [facility] 04/21/2024 10:32:10 Social History None recorded. Functional Status None recorded. Mental Status None recorded. Family History Nothing Reported. Medical History No medical history recorded. Gynecological HistoryNo gynecological history recorded. Obstetrics History GPAL:G 0 P 0 0 0 0 Past Encounters Encounter ID Performer Location Encounter Start Date Encounter Closed Date Diagnosis/Indication Diagnosis SNOMED-CT Code Diagnosis ICD10 Code Diagnosis IMO Codes Diagnosis Note [id number] TYLER Mccormack [address] [place] [address] 10/15/2023 09:52:26 11/09/2023 11:18:23 Osteoarthritis of left hip joint 6268107423 73337 M16.12 [id number] TYLER Mccormack [address] [place] [address] 01/20/2024 10:18:54 02/17/2024 11:12:20 Osteoarthritis of left hip joint 0378866638 40892 M16.12 [id number] TYLER Mccormack [address] [place] [address] 04/21/2024 10:26:30 05/18/2024 11:45:52 Osteoarthritis of left hip joint 3215782683 78358 M16.12 [id number] TYLER Mccormack - [facility] [address] [place] [address] 08/03/2024 15:09:04 08/18/2024 14:07:17 Osteoarthritis of left hip joint 8119741614 79003 M16.12 [id number] Babar Nettles PA-C [facility] [address] [place] [address] 11/07/2024 13:17:12 11/18/2024 14:36:00 Osteoarthritis of left hip joint 0663264913 54218 M16.12 [id number] TYLER [facility] - [facility] [address] [place] [address] 02/17/2025 08:23:58 02/27/2025 13:56:34 Osteoarthritis of left hip joint 1288859670 87498 M16.12 Health Concerns Section Related Observation LastModified by Organization Detai ls LastModified Time None Recorded Concern Status LastModified by Organization Details LastModified Time None Recorded Advance Directives Directive None Recorded Payers Insurance Date Sequence Insurance Name Policy Number Policy Camacho Covered Member ID Camacho Member ID Guarantor Name 02/14/2025 2 [place] [facility] [facility] Lenka Hudson [id number] Lenka Hudson 02/14/2025 1 [place] [employer] Lenka Hudson [id number] Lenka Hudson OBGyn Episode No OBEpisode recorded.
== END 2025-04-05 17:09 | disposition home or self-care (01) ==
PROVIDERS: Emergency Provider Student in an Organized Health Care Education/Training Program; PCP Family Medicine
DX: S09.90XA Unspecified injury of head, initial encounter (principal); W05.0XXA Fall from non-moving wheelchair, initial encounter; Y93.9 Activity, unspecified; Y92.89 Other specified places as the place of occurrence of the external cause; Y99.9 Unspecified external cause status
CPT/HCPCS: 70450; 72125; 99282; 99284

== ENCOUNTER → 2025-04-05 15:38 | Outpatient (BNV) | payer MEDICARE, MEDICAID, SELFPAY | PROVIDERS: Emergency Provider Student in an Organized Health Care Education/Training Program; PCP Family Medicine; Visit Provider Radiology Diagnostic Radiology | DX: M47.812 Spondylosis without myelopathy or radiculopathy, cervical region (principal); S09.90XA Unspecified injury of head, initial encounter; G31.9 Degenerative disease of nervous system, unspecified | CPT/HCPCS: 70450; 72125 ==